=== PATIENT | female | born 1945 | race Caucasian/White ===

== ENCOUNTER → 2016-03-24 | Outpatient (CLI) | payer MEDICARE, OTHER ==
--- NOTE | 2016-03-24 17:00 | TR ---
Date Performed: 03/24/2016 Time Performed: 12:15:31 DOCTOR: Michelle Jesus DRUG LIST: CLINICAL HISTORY: REASON FOR TEST: REASON FOR ENDING: OBSERVATION: CONCLUSION: ATTEMPTED LICHA PROTOCOL. NO CP. TEST STOPPED PRIOR TO REACHING GOAL HEART RATE SECO NDARY TO SOB AND LEG FATIGUE.Maximum RM=517 Max HR Achieved=73.0% Maximum YV=867/68 Total Exercise T timothy=2:51 COMMENTS:
== END ==
LOC: HCAV 11:54
PROVIDERS: ATTEND Family Medicine
DX: R07.9 Chest pain, unspecified (principal)
CPT/HCPCS: 93017

== ENCOUNTER 2016-10-04 13:02 | Emergency (ER) | payer MEDICARE, OTHER ==
[~2016-10-04] VITALS: Ht 160 cm; Wt 85.0 kg
[~2016-10-04 13:02] MED LIST: AMLO5TAB2 PO; ASPI-147 PO; ATOR1TAB18 PO; CLON0.5T PO; LEVO75TA3 PO; LOSA50TA PO; METO25TA3 PO; NATE120T PO; SERT-132 PO; SITA1TAB2 PO; TRIA37.53 PO
[2016-10-04 13:06] VITALS: BP 129/60; PULSE 71; RESP 14; TEMP 98.4; O2SAT 97
[2016-10-04] MEDS ORDERED: DIAZEPAM 5 MG TAB PO ONE (13:30)
[2016-10-04] MEDS ORDERED: MORPHINE SULFATE 4 MG/ML INJ IV PUSH ONE (13:30)
[2016-10-04] MEDS ORDERED: SODIUM CHLOR 0.9% 1000 ML INJ 1,000 ML IV SCH (13:30)
[2016-10-04] MEDS ORDERED: SODIUM CHLORIDE 0.9% FLUSH 10 ML FLUSH IV FLUSH PRN (13:30)
[2016-10-04] MEDS ORDERED: KETOROLAC TROMETHAMINE 30 MG/ML (IVP) VIAL IV PUSH ONE (13:30)
[2016-10-04] MEDS ORDERED: ONDANSETRON HCL 4 MG/2 ML VIAL IVP ONE (13:30)
--- NOTE | 2016-10-04 13:38 | PD ---
HPI Chief Complaint: Abdominal Pain Time Seen by Provider: 13:25 Travel History International Travel<30 days: No Contact w/Intl Traveler<30days: No Traveled to known affect area: No History of Present Illness HPI Patient is a 71-year-old female who presents to emergency with complaints of abdominal pain. She reports that since yesterday, she has been having right lower quadrant abdominal pain. Reports that she is concerned that she may have appendicitis. Patient denies any fevers or chills, denies any nausea or vomiting. Patient also reports that she has acute on chronic low back pain. Reports that she has sciatica with flareup 2 weeks ago. She did follow-up with her chiropractor on Wednesday and had an adjustments, reports that her back is feeling much better. Reports that she still has sciatic pain. Patient denies any saddle anesthesia, denies any incontinence of urine or stool. Patient with no fevers or chills, patient with no problems with gait ambulation. PFSH Past Medical History High Cholesterol: Yes Diabetes: Yes Hypertension: Yes ?: Not Past Surgical History Hysterectomy: Yes Social History Alcohol Use: No Tobacco Use: No Substance Use: No Allergies-Medications (Allergen,Severity, Reaction): Coded Allergies: Sulfa (Verified Allergy, Severe, Nausea/Vomiting, 09/17/16) Reported Meds & Prescriptions Reported Meds & Active Scripts Active Tramadol (Tramadol HCl) 50 Mg Tab 50 Mg PO Q6H PRN Valium (Diazepam) 5 Mg Tab 5 Mg PO BID PRN Ibuprofen 600 Mg Tab 600 Mg PO Q6H PRN Reported Triamterene-Hydrochlorothiazide 37.5-25 Mg Cap 1 Cap PO DAILY Sertraline (Sertraline HCl) 50 Mg Tab 50 Mg PO DAILY Nateglinide 120 Mg Tab 120 Mg PO TIDAC Metoprolol Tartrate 25 Mg Tab 25 Mg PO BID Losartan (Losartan Potassium) 50 Mg Tab 50 Mg PO DAILY Levothyroxine (Levothyroxine Sodium) 75 Mcg Tab 75 Mcg PO DAILY Januvia (Sitagliptin Phosphate) 100 Mg Tab 100 Mg PO DAILY Ecotrin Low Strength (Aspirin) 81 Mg Tabdr 81 Mg PO DAILY Clonazepam 0.5 Mg Tab 0.5 Mg PO BID PRN Atorvastatin (Atorvastatin Calcium) 80 Mg Tab 80 Mg PO HS Amlodipine (Amlodipine Besylate) 5 Mg Tab 5 Mg PO DAILY Review of Systems General / Constitutional: No: Fever Eyes: No: Visual changes HENT: No: Headaches Cardiovascular: No: Chest Pain or Discomfort Respiratory: No: Shortness of Breath Gastrointestinal: Positive: Abdominal Pain Genitourinary: No: Dysuria Musculoskeletal: Positive: Pain (low back pain with sciatica down her right leg ) Skin: No Rash Neurologic: No: Weakness Psychiatric: No: Depression Endocrine: No: Polydipsia Hematologic/Lymphatic: No: Easy Bruising Physical Exam Narrative GENERAL: mild distress SKIN: Focused skin assessment warm/dry. HEAD: Atraumatic. Normocephalic. EYES: Pupils equal and round. No scleral icterus. No injection or drainage. ENT: No nasal bleeding or discharge. Mucous membranes pink and moist. NECK: Trachea midline. No JVD. CARDIOVASCULAR: Regular rate and rhythm. No murmur appreciated. RESPIRATORY: No accessory muscle use. Clear to auscultation. Breath sounds equal bilaterally. GASTROINTESTINAL: Abdomen soft, nondistended, mildly tender to RLQ with no rebound or guarding MUSCULOSKELETAL: No obvious deformities. No clubbing. No cyanosis. No edema. NEUROLOGICAL: Awake and alert. No obvious cranial nerve deficits. Motor grossly within normal limits. Normal speech. PSYCHIATRIC: Appropriate mood and affect; insight and judgment normal. Data Data Last Documented VS Vital Signs Date Time Temp Pulse Resp B/P Pulse Ox O2 Delivery O2 Flow Rate FiO2 10/04/16 15:16 140/74 99 10/04/16 13:06 98.4 71 14 Room Air Orders Complete Blood Count With Diff (10/04/16 13:30) Comprehensive Metabolic Panel (10/04/16 13:30) Lipase (10/04/16 13:30) Prothrombin Time / Inr (Pt) (10/04/16 13:30) Act Partial Throm Time (Ptt) (10/04/16 13:30) Urinalysis - C+S If Indicated (10/04/16 13:30) Iv Access Insert/Monitor (10/04/16 13:30) Ecg Monitoring (10/04/16 13:30) Oximetry (10/04/16 13:30) Morphine Inj (Morphine Inj) (10/04/16 13:30) Ondansetron Inj (Zofran Inj) (10/04/16 13:30) Sodium Chlor 0.9% 1000 Ml Inj (Ns 1000 M (10/04/16 13:30) Sodium Chloride 0.9% Flush (Ns Flush) (10/04/16 13:30) Ketorolac Inj (Toradol Inj) (10/04/16 13:30) Diazepam (Valium) (10/04/16 13:30) Ct Abd/Pel W Iv Contrast(Rout) (10/04/16 14:07) Iodixanol 320 Inj (Rad Ct) (Visipaque 32 (10/04/16 14:48) Labs Laboratory Tests Test 10/04/16 13:41 White Blood Count 4.8 TH/MM3 Red Blood Count 4.66 MIL/MM3 Hemoglobin 14.2 GM/DL Hematocrit 41.1 % Mean Corpuscular Volume 88.2 FL Mean Corpuscular Hemoglobin 30.4 PG Mean Corpuscular Hemoglobin 34.4 % Concent Red Cell Distribution Width 11.5 % Platelet Count 264 TH/MM3 Mean Platelet Volume 7.8 FL Neutrophils (%) (Auto) 60.6 % Lymphocytes (%) (Auto) 26.7 % Monocytes (%) (Auto) 7.4 % Eosinophils (%) (Auto) 3.6 % Basophils (%) (Auto) 1.7 % Neutrophils # (Auto) 2.8 TH/MM3 Lymphocytes # (Auto) 1.3 TH/MM3 Monocytes # (Auto) 0.4 TH/MM3 Eosinophils # (Auto) 0.2 TH/MM3 Basophils # (Auto) 0.1 TH/MM3 CBC Comment DIFF FINAL Differential Comment Prothrombin Time 10.2 SEC Prothromb Time International 0.9 RATIO Ratio Activated Partial 25.4 SEC Thromboplast Time Urine Collection Type CLEAN CATCH Urine Color STRAW Urine Turbidity SLIGHT Urine pH 6.5 Urine Specific Rice 1.016 Urine Protein NEG mg/dL Urine Glucose (UA) NEG mg/dL Urine Ketones NEG mg/dL Urine Occult Blood NEG Urine Nitrite NEG Urine Bilirubin NEG Urine Leukocyte Esterase NEG Urine WBC 0-2 /hpf Urine Squamous Epithelial 0-5 /hpf Cells Urine Amorphous Sediment MOD Microscopic Urinalysis Comment CULT NOT INDICATED Urine Collection Time 1341 Sodium Level 141 MEQ/L Potassium Level 3.7 MEQ/L Chloride Level 107 MEQ/L Carbon Dioxide Level 27.0 MEQ/L Anion Gap 7 MEQ/L Blood Urea Nitrogen 36 MG/DL Creatinine 1.40 MG/DL Estimat Glomerular Filtration 37 ML/MIN Rate Random Glucose 146 MG/DL Calcium Level 9.3 MG/DL Total Bilirubin 0.6 MG/DL Aspartate Amino Transf 21 U/L (AST/SGOT) Alanine Aminotransferase 36 U/L (ALT/SGPT) Alkaline Phosphatase 93 U/L Total Protein 7.2 GM/DL Albumin 3.5 GM/DL Lipase 180 U/L [facility] Medical Decision Making Medical Screen Exam Complete: Yes Emergency Medical Condition: Yes Interpretation(s) Vital Signs Date Time Temp Pulse Resp B/P Pulse Ox O2 Delivery O2 Flow Rate FiO2 10/04/16 13:06 98.4 71 14 129/60 97 Room Air Differential Diagnosis Differential includes gastritis, gastroenteritis, appendicitis, cystitis, electrolyte abnormality Narrative Course Patient is a 71-year-old female who presents to emergency room with complaints of right lower quadrant abdominal pain. She reports that pain began yesterday and feels like a sharp and stabbing sensation. Patient denies constipation, denies nausea vomiting or diarrhea. Patient reports that she is concern for possible appendicitis. Patient reports history of hysterectomy with bilateral oophorectomy. Patient also complains of low back pain. Reports history of low back pain, reports that for the past 2 weeks she has had increased sciatic pain down her right lower extremity. She has follow-up with chiropractor, reports acute on chronic pain to her low back. 1) abdominal pain: Plan to obtain lab work, will order CT of the abdomen pelvis to evaluate for possible appendicitis. UA ordered to evaluate for possible cystitis. 2) back pain with sciatica: Patient is a diabetic, will hold on steroids. Plan to give muscle relaxers, Toradol, will treat patient's pain with morphine. Vital Signs Date Time Temp Pulse Resp B/P Pulse Ox O2 Delivery O2 Flow Rate FiO2 10/04/16 14:07 97 10/04/16 13:06 98.4 71 14 129/60 97 Room Air Laboratory Tests Test 10/04/16 13:41 White Blood Count 4.8 TH/MM3 (4.0-11.0) Red Blood Count 4.66 MIL/MM3 (4.00-5.30) Hemoglobin 14.2 GM/DL (11.6-15.3) Hematocrit 41.1 % (35.0-46.0) Mean Corpuscular Volume 88.2 FL (80.0-100.0) Mean Corpuscular Hemoglobin 30.4 PG (27.0-34.0) Mean Corpuscular Hemoglobin 34.4 % Concent (32.0-36.0) Red Cell Distribution Width 11.5 % (11.6-17.2) Platelet Count 264 TH/MM3 (150-450) Mean Platelet Volume 7.8 FL (7.0-11.0) Neutrophils (%) (Auto) 60.6 % (16.0-70.0) Lymphocytes (%) (Auto) 26.7 % (9.0-44.0) Monocytes (%) (Auto) 7.4 % (0.0-8.0) Eosinophils (%) (Auto) 3.6 % (0.0-4.0) Basophils (%) (Auto) 1.7 % (0.0-2.0) Neutrophils # (Auto) 2.8 TH/MM3 (1.8-7.7) Lymphocytes # (Auto) 1.3 TH/MM3 (1.0-4.8) Monocytes # (Auto) 0.4 TH/MM3 (0-0.9) Eosinophils # (Auto) 0.2 TH/MM3 (0-0.4) Basophils # (Auto) 0.1 TH/MM3 (0-0.2) CBC Comment DIFF FINAL Differential Comment Prothrombin Time 10.2 SEC (9.8-11.6) Prothromb Time International 0.9 RATIO Ratio Activated Partial 25.4 SEC Thromboplast Time (24.3-30.1) Urine Collection Type CLEAN CATCH Urine Color STRAW (YELLW/STRAW) Urine Turbidity SLIGHT (CLEAR) Urine pH 6.5 (5.0-8.5) Urine Specific Rice 1.016 (1.002-1.035) Urine Protein NEG mg/dL (NEG-TRACE) Urine Glucose (UA) NEG mg/dL (NEG) Urine Ketones NEG mg/dL (NEG) Urine Occult Blood NEG (NEG) Urine Nitrite NEG (NEG) Urine Bilirubin NEG (NEG) Urine Leukocyte Esterase NEG (NEG) Urine WBC 0-2 /hpf (0-5) Urine Squamous Epithelial 0-5 /hpf (0-5) Cells Urine Amorphous Sediment MOD Microscopic Urinalysis Comment CULT NOT INDICATED Urine Collection Time 1341 Sodium Level 141 MEQ/L (136-145) Potassium Level 3.7 MEQ/L (3.5-5.1) Chloride Level 107 MEQ/L (98-107) Carbon Dioxide Level 27.0 MEQ/L (21.0-32.0) Anion Gap 7 MEQ/L (5-15) Blood Urea Nitrogen 36 MG/DL (7-18) Creatinine 1.40 MG/DL (0.50-1.00) Estimat Glomerular Filtration 37 ML/MIN (>89) Rate Random Glucose 146 MG/DL (74-106) Calcium Level 9.3 MG/DL (8.5-10.1) Total Bilirubin 0.6 MG/DL (0.2-1.0) Aspartate Amino Transf 21 U/L (15-37) (AST/SGOT) Alanine Aminotransferase 36 U/L (10-53) (ALT/SGPT) Alkaline Phosphatase 93 U/L (45-117) Total Protein 7.2 GM/DL (6.4-8.2) Albumin 3.5 GM/DL (3.4-5.0) Lipase 180 U/L (73-393) Last Impressions Abdomen/Pelvis CT 10/04/16 1407 Signed Impressions: Service Date/Time: Wednesday, October 04, 2016 14:35 - CONCLUSION: 1. Small myelolipoma left adrenal gland. 2. Mass versus ingested material inside the stomach. 3. Tiny left renal stone. Felicia Barksdale MD Patient reevaluated, patient is feeling much better at this time. Abdomen is soft, nontender, nondistended, no peritoneal signs. Signs and symptoms of when to return to the emergency was reviewed patient in detail. I did give patient a copy of her CT report as she will need to follow-up on all incidental findings Diagnosis Primary Impression: Abdominal pain Qualified Code: R10.31 - Right lower quadrant abdominal pain Additional Impressions: Lumbago with sciatica, right side Myelolipoma of left adrenal gland Mass of stomach Dehydration Referrals: Darlene Andrew MD Patient Instructions: General Instructions, Narcotic given in the ED Additional Instructions: Please provide patient with a copy of her lab work and studies at discharge Please follow up with primary care doctor Return to the emergency room as needed Return to the emergency room if symptoms worsen or progress Please bring a copy of your studies to your doctor's office for follow-up on all incidental findings from today Med/Other Pt SpecificInfo: Prescription(s) given Scripts Tramadol 50 Mg Tab50 Mg PO Q6H PRN (PAIN) #10 TAB Ref 0 Prov:Adriana Mortensen DO 10/04/16 Diazepam (Valium)5 Mg Tab5 Mg PO BID PRN (MUSCLE SPASM) #12 TAB Ref 0 Prov:Adriana Mortensen DO 10/04/16 Ibuprofen 600 Mg [id number] Mg PO Q6H PRN (Pain/Inflammation) #40 TAB Ref 0 Prov:Adriana Mortensen DO 10/04/16 Disposition: 01 DISCHARGE HOME Condition: Stable Adriana Mortensen DO Oct 04, 2016 13:38
[2016-10-04 14:03] LABS: AUTOMATED NEUTROPHIL # 2.8 TH/MM3 (1.8-7.7); BASOPHIL # 0.1 TH/MM3 (0-0.2); BASOPHIL % 1.7 % (0.0-2.0); EOSINOPHIL # 0.2 TH/MM3 (0-0.4); EOSINOPHIL % 3.6 % (0.0-4.0); HEMATOCRIT 41.1 % (35.0-46.0); HEMO FLAGS DIFF FINAL; LYMPH % 26.7 % (9.0-44.0); LYMPHOCYTE # 1.3 TH/MM3 (1.0-4.8); MEAN CELL VOLUME 88.2 FL (80.0-100.0); MEAN CORPUSCULAR HEMOGLOBIN 30.4 PG (27.0-34.0); MEAN CORPUSCULAR HGB CONC 34.4 % (32.0-36.0); MONO % 7.4 % (0.0-8.0); NEUT % 60.6 % (16.0-70.0); PLATELET COUNT 264 TH/MM3 (150-450); RED BLOOD COUNT 4.66 MIL/MM3 (4.00-5.30); RED CELL DISTRIBUTION WIDTH 11.5 % (11.6-17.2); WHITE BLOOD COUNT 4.8 TH/MM3 (4.0-11.0)
[2016-10-04 14:07] VITALS: O2SAT 97
[2016-10-04 14:18] LABS: CHLORIDE 107 MEQ/L (98-107); POTASSIUM 3.7 MEQ/L (3.5-5.1); SODIUM (NA) 141 MEQ/L (136-145)
[2016-10-04 14:19] LABS: BLOOD, URINE NEG (NEG); GLUCOSE,URINE NEG (NEG); KETONE, URINE NEG (NEG); NITRITE,URINE NEG (NEG); PH, URINE 6.5 (5.0-8.5)
[2016-10-04 14:22] LABS: ANION GAP 7 MEQ/L (5-15); BLOOD UREA NITROGEN 36 MG/DL (7-18)
[2016-10-04 14:24] LABS: APTT (PATIENT) 25.4 SEC (24.3-30.1); INTERNATIONAL NORMALIZED RATIO 0.9 RATIO; PROTHROMBIN TIME - PATIENT 10.2 SEC (9.8-11.6)
[2016-10-04 14:25] LABS: ALT (GPT) 36 U/L (10-53); AST (GOT) 21 U/L (15-37); GLOMERULAR FILTRATION RATE 37 ML/MIN (>89)
[2016-10-04 14:27] LABS: TOTAL BILIRUBIN ADULT 0.6 MG/DL (0.2-1.0)
[2016-10-04 14:28] LABS: ALKALINE PHOSPHATASE 93 U/L (45-117)
[2016-10-04 14:29] LABS: METHOD OF COLLECTION CLEAN CATCH; URINE COLOR STRAW (YELLW/STRAW)
[2016-10-04 14:31] LABS: COMMENT (UR) CULT NOT INDICATED; COMMENT2 (UR) MUCOUS PRESENT; CULTURE IF INDICATED CULT NOT INDICATED; SQUAMOUS EPITHELIAL CELL URINE 0-5 /hpf (0-5); WBC, URINE 0-2 /hpf (0-5)
[2016-10-04] MEDS ORDERED: IODIXANOL 320 MG/ML 10 ML VIAL (for Rad CT) IV ONE (14:48)
--- NOTE | 2016-10-04 15:00 | RADRPT ---
EXAM DATE/TIME: 10/04/2016 14:35 [facility] COMPARISON: No previous studies available for comparison. INDICATIONS : Right lower quadrant pain. IV CONTRAST: 50 cc Visipaque (iodixanol) IV ORAL CONTRAST: No oral contrast ingested. RADIATION DOSE: 20.41 CTDIvol (mGy) MEDICAL HISTORY : Hypertension. Diabetes. SURGICAL HISTORY : Hysterectomy. ENCOUNTER: Initial ACUITY: 2 days PAIN SCALE: 4/10 LOCATION: Right lower quadrant TECHNIQUE: Volumetric scanning of the abdomen and pelvis was performed. Using automated exposure control and ad justment of the mA and/or kV according to patient size, radiation dose was kept as low as reasonably achievable to obtain optimal diagnostic quality images. DICOM format image data is available electro nically for review and comparison. FINDINGS: CT Abdomen: The liver, spleen, pancreas, right kidney, right adrenal are unremarkable. There is a tin y 3-4 mm stone in the left kidney with slight scarring in left kidney as well. There is no ureteral s tone and there is no hydronephrosis on either side. There is a fat-containing mass in the left adrena l gland measures 1.4 cm in size characteristic of myelolipoma. There is no evidence for any apprecia ble pathological adenopathy, free fluid, or bowel obstruction. Chronic vascular calcifications are pr esent involving the aorta, iliac arteries without any significant stenosis or aneurysmal dilatations for technique. There is soft tissue density in the posterior portion of the stomach measures 3.3 cm i n size possibly ingested material versus mass. CT pelvis: There is no evidence for mass, abscess formation, or any significant adenopathy within the pelvis. The appendix appears intact without definite signs of appendicitis. CONCLUSION: 1. Small myelolipoma left adrenal gland. 2. Mass versus ingested material inside the stomach. 3. Tiny left renal stone. Felicia Barksdale MD on October 04, 2016 at 14:54 Board Certified Radiologist. This report was verified electronically.
[2016-10-04] MEDS ORDERED: DIAZ5 PO (15:10)
[2016-10-04] MEDS ORDERED: IBUP-232 PO (15:10)
[2016-10-04] MEDS ORDERED: TRAM50TA PO (15:10)
[2016-10-04 15:16] VITALS: BP 140/74; O2SAT 99
[2016-10-04 16:02] VITALS: BP 147/74
== END 2016-10-04 16:07 | disposition home or self-care (01) ==
LOC: PHED 13:02
DX: R10.31 Right lower quadrant pain (principal); M54.41 Lumbago with sciatica, right side; D17.79 Benign lipomatous neoplasm of other sites; R19.09 Other intra-abdominal and pelvic swelling, mass and lump; E86.0 Dehydration; E11.9 Type 2 diabetes mellitus without complications; I10 Essential (primary) hypertension; E78.00 Pure hypercholesterolemia, unspecified; Z79.84 Long term (current) use of oral hypoglycemic drugs
CPT/HCPCS: 74177; 80053; 81001; 83690; 85025; 85610; 85730; 96361; 96374; 96375; 99285; J1885; J2270; J2405; J7030; Q9967

== ENCOUNTER 2016-10-25 16:23 | Inpatient (IN) | payer MEDICARE, OTHER ==
[2016-10-25] VITALS (8 sets, daily range): BP systolic 109–143; BP diastolic 56–67; PULSE 56–106; RESP 16–24; TEMP 98.2–98.9; O2SAT 97–100
[~2016-10-25] VITALS: Ht 160 cm; Wt 89.3 kg
[~2016-10-25 16:23] MED LIST changes: +DIAZ5 PO; +IBUP-232 PO; +TRAM50TA PO
[2016-10-25 17:06] LABS: MEAN CORPUSCULAR HGB CONC 36.4 % (32.0-36.0)
[2016-10-25] MEDS ORDERED: SODIUM CHLORIDE 0.9% FLUSH 10 ML FLUSH IVF PRN (17:15)
--- NOTE | 2016-10-25 17:17 | PD ---
HPI Chief Complaint: Respiratory Symptoms Time Seen by Provider: 16:46 Travel History International Travel<30 days: No Contact w/Intl Traveler<30days: No Traveled to known affect area: No History of Present Illness HPI 71-year-old woman who presents to the emergency department complaining of shortness of breath with exertion over the past 2 days or so. Some dull pain in the left shoulder and left shoulder blade as well. She has had trouble for the past several months or so. She had sciatica symptoms. She has some pain in her lower abdomen that was bothering her that they think was probably the sciatica. She had a CT scan done at [place] on October 04 that showed concern for stomach mass versus ingested food. She was due to have a colonoscopy and endoscopy in the next day or 2. She states that she's been feeling more sick, and then started to develop this new shortness of breath when she has not had before so she came to the emergency department. She's never had a DVT or PE in the past. She has no heart disease. 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 She does take aspirin but stopped that 2-3 days ago for upcoming endoscopy. History Past Medical History Narrative Medical Diabetes Hypertension hyperlipidemia Hypothyroidism Social History Alcohol Use: No Tobacco Use: No Allergies-Medications (Allergen,Severity, Reaction): Coded Allergies: Sulfa (Verified Allergy, Severe, Nausea/Vomiting, 10/25/16) Reported Meds & Prescriptions Reported Meds & Active Scripts Active Tramadol (Tramadol HCl) 50 Mg Tab 50 Mg PO Q6H PRN Reported Triamterene-Hydrochlorothiazide 37.5-25 Mg Cap 1 Cap PO DAILY Sertraline (Sertraline HCl) 50 Mg Tab 50 Mg PO DAILY Nateglinide 120 Mg Tab 120 Mg PO TIDAC Metoprolol Tartrate 25 Mg Tab 25 Mg PO BID Losartan (Losartan Potassium) 50 Mg Tab 50 Mg PO DAILY Levothyroxine (Levothyroxine Sodium) 75 Mcg Tab 75 Mcg PO DAILY Januvia (Sitagliptin Phosphate) 100 Mg Tab 100 Mg PO DAILY Ecotrin Low Strength (Aspirin) 81 Mg Tabdr 81 Mg PO DAILY Clonazepam 0.5 Mg Tab 0.5 Mg PO BID PRN Atorvastatin (Atorvastatin Calcium) 80 Mg Tab 80 Mg PO HS Amlodipine (Amlodipine Besylate) 5 Mg Tab 5 Mg PO DAILY Review of Systems Except as stated in HPI: all other systems reviewed are Neg Physical Exam Narrative GENERAL: Well-appearing 71-year-old woman, no acute distress. SKIN: Focused skin assessment warm/dry. HEAD: Atraumatic. Normocephalic. EYES: Pupils equal and round. No scleral icterus. No injection or drainage. ENT: No nasal bleeding or discharge. Mucous membranes pink and moist. NECK: Trachea midline. No JVD. CARDIOVASCULAR: Regular rate and rhythm. No murmur appreciated. RESPIRATORY: No accessory muscle use. Clear to auscultation. Breath sounds equal bilaterally. GASTROINTESTINAL: Abdomen soft, non-tender, nondistended. Hepatic and splenic margins not palpable. MUSCULOSKELETAL: No obvious deformities. No edema. No evidence of DVT. NEUROLOGICAL: Awake and alert. No obvious cranial nerve deficits. Motor grossly within normal limits. Normal speech. Data Data Last Documented VS Vital Signs Date Time Temp Pulse Resp B/P Pulse Ox O2 Delivery O2 Flow Rate FiO2 10/25/16 18:31 56 20 109/56 10/25/16 17:25 Nasal Cannula 2 10/25/16 17:25 98 10/25/16 16:28 98.7 Orders Complete Blood Count With Diff (10/25/16 17:02) Comprehensive Metabolic Panel (10/25/16 17:02) B-Type Natriuretic Peptide (10/25/16 17:02) D-Dimer (10/25/16 17:02) Troponin I (10/25/16 17:02) Iv Access Insert/Monitor (10/25/16 17:02) Electrocardiogram (10/25/16 17:02) Ecg Monitoring (10/25/16 17:02) Oximetry (10/25/16 17:02) Oxygen Administration (10/25/16 17:02) Chest, Single Ap (10/25/16 17:02) Sodium Chloride 0.9% Flush (Ns Flush) (10/25/16 17:15) Sodium Chlor 0.9% 1000 Ml Inj (Ns 1000 M (10/25/16 17:30) Diet Heart Healthy (10/25/16 Dinner) Diet 1800 Ada Cons Carb (10/25/16 Dinner) Vital Signs (Adult) OSEAS.Q4H (10/25/16 18:16) Blood Glucose Goal (Criteria) (10/25/16 18:16) Hypoglycemia 70 Mg/Dl Or < (10/25/16 18:16) Notify Dr: Other (10/25/16 18:16) Dextrose 50% In [place] (Vial) Inj (D50w (Vi (10/25/16 18:30) Glucagon Inj (Glucagon Inj) (10/25/16 18:30) Insulin Aspart Supplemtl Scale (Novolog (10/25/16 21:00) Ventilation & Perfusion Scan (10/25/16 ) Vital Signs (Adult) OSEAS.Q4H (10/25/16 18:27) Enoxaparin Inj (Lovenox Inj) (10/25/16 18:45) Admit Order (Ed Use Only) (10/25/16 ) Labs Laboratory Tests Test 10/25/16 17:05 White Blood Count 14.8 TH/MM3 Red Blood Count 4.73 MIL/MM3 Hemoglobin 15.0 GM/DL Hematocrit 41.1 % Mean Corpuscular Volume 87.0 FL Mean Corpuscular Hemoglobin 31.7 PG Mean Corpuscular Hemoglobin 36.4 % Concent Red Cell Distribution Width 12.7 % Platelet Count 242 TH/MM3 Mean Platelet Volume 8.9 FL Neutrophils (%) (Auto) 82.3 % Lymphocytes (%) (Auto) 10.0 % Monocytes (%) (Auto) 6.5 % Eosinophils (%) (Auto) 0.5 % Basophils (%) (Auto) 0.7 % Neutrophils # (Auto) 12.2 TH/MM3 Lymphocytes # (Auto) 1.5 TH/MM3 Monocytes # (Auto) 1.0 TH/MM3 Eosinophils # (Auto) 0.1 TH/MM3 Basophils # (Auto) 0.1 TH/MM3 CBC Comment AUTO DIFF Differential Total Cells 100 Counted Neutrophils % (Manual) 87 % Band Neutrophils % 1 % Lymphocytes % 9 % Monocytes % 3 % Neutrophils # (Manual) 13.0 TH/MM3 Differential Comment FINAL DIFF MANUAL Atypical Lymphocytes % D-Dimer Quantitative (PE/DVT) 4.97 MG/L FEU Sodium Level 136 MEQ/L Potassium Level 3.0 MEQ/L Chloride Level 99 MEQ/L Carbon Dioxide Level 27.9 MEQ/L Anion Gap 9 MEQ/L Blood Urea Nitrogen 25 MG/DL Creatinine 1.76 MG/DL Estimat Glomerular Filtration 28 ML/MIN Rate Random Glucose 170 MG/DL Calcium Level 9.7 MG/DL Total Bilirubin 1.0 MG/DL Aspartate Amino Transf 18 U/L (AST/SGOT) Alanine Aminotransferase 29 U/L (ALT/SGPT) Alkaline Phosphatase 86 U/L Troponin I LESS THAN 0.02 NG/ML B-Type Natriuretic Peptide 28 PG/ML Total Protein 7.7 GM/DL Albumin 3.4 GM/DL MDM Medical Decision Making Medical Screen Exam Complete: Yes Emergency Medical Condition: Yes Interpretation(s) My review of EKG: Sinus rhythm at a rate of 94, normal axis, normal intervals, some nonspecific inferolateral ST changes, no definite evidence of acute ischemia. Labs: CBC remarkable for CBC elevated white count CMP remarkable from a been a chronic, GFR 28 Troponin negative BNP 28 d-dimer 4.97 Chest x-ray: No acute disease. Differential Diagnosis Anemia, gastritis, mass, PE, ACS, dehydration, other Narrative Course Medical decision making INITIAL: This is a 71-year-old woman who presents to the emergency Department with shortness of breath and dyspnea on exertion ongoing for the past 2 days or so. She's had 6 months or so not really feeling well, she had some double vision that resolved and was attributed to diabetes, she also had some sciatica symptoms. She has this questionable mass in her stomach for which she was given have endoscopy 4. She is a little tachycardic and a little bit hypoxic. PE definitely on the differential. We'll check d-dimer, troponin, EKG, chest x- ray, reassess. FINAL: 71 year-old woman, hypoxia tachycardic with elevated d-dimer, concerning for PE. Renal insufficiency precludes CT pulmonary angiogram. We'll plan empiric Lovenox, VQ scan, repeat assessment. Diagnosis Primary Impression: SOB (shortness of breath) Admitting Information Admitting Physician Requests: Heriberto Mo MD Oct 25, 2016 17:17
[2016-10-25] MEDS ORDERED: SODIUM CHLOR 0.9% 1000 ML INJ 1,000 ML IV ONE (17:30)
--- NOTE | 2016-10-25 17:32 | RADRPT ---
EXAM DATE/TIME: 10/25/2016 17:07 [facility] COMPARISON: No previous studies available for comparison. INDICATIONS : Shortness of breath with left shoulder pain. MEDICAL HISTORY : Hypertension. Diabetes mellitus type II. SURGICAL HISTORY : Hysterectomy. ENCOUNTER: Initial ACUITY: 1 day PAIN SCORE: 6/10 LOCATION: Left chest FINDINGS: A single view of the chest demonstrates the lungs to be symmetrically aerated without evidence of mas s, infiltrate or effusion. The cardiomediastinal contours are unremarkable. Osseous structures are intact. CONCLUSION: No acute disease. Sarabjit Heaton MD on October 25, 2016 at 17:31 Board Certified Radiologist. This report was verified electronically.
[2016-10-25 17:33] LABS: AUTOMATED NEUTROPHIL # 12.2 TH/MM3 (1.8-7.7); BASOPHIL # 0.1 TH/MM3 (0-0.2); BASOPHIL % 0.7 % (0.0-2.0); EOSINOPHIL # 0.1 TH/MM3 (0-0.4); EOSINOPHIL % 0.5 % (0.0-4.0); HEMATOCRIT 41.1 % (35.0-46.0); LYMPHOCYTE # 1.5 TH/MM3 (1.0-4.8); MEAN CORPUSCULAR HEMOGLOBIN 31.7 PG (27.0-34.0); MONO % 6.5 % (0.0-8.0); NEUT % 82.3 % (16.0-70.0); PLATELET COUNT 242 TH/MM3 (150-450); RED BLOOD COUNT 4.73 MIL/MM3 (4.00-5.30); RED CELL DISTRIBUTION WIDTH 12.7 % (11.6-17.2); WHITE BLOOD COUNT 14.8 TH/MM3 (4.0-11.0)
[2016-10-25 17:34] LABS: HEMO FLAGS AUTO DIFF
[2016-10-25 17:55] LABS: ALT (GPT) 29 U/L (10-53); ANION GAP 9 MEQ/L (5-15); AST (GOT) 18 U/L (15-37); BICARBONATE 27.9 MEQ/L (21.0-32.0); BLOOD UREA NITROGEN 25 MG/DL (7-18); CHLORIDE 99 MEQ/L (98-107); GLOMERULAR FILTRATION RATE 28 ML/MIN (>89); SODIUM (NA) 136 MEQ/L (136-145)
[2016-10-25 17:59] LABS: ALKALINE PHOSPHATASE 86 U/L (45-117)
[2016-10-25 18:06] LABS: BANDS 1 % (0-6); POLYS (SEG NEUTROPHILS) 87 % (16-70); WBC DIFF SAMPLE 100
[2016-10-25 18:07] LABS: SCAN/DIFF FINAL DIFF MANUAL
[2016-10-25] MEDS ORDERED: DEXTROSE 50% IN WATER 50 ML VIAL(D50) IV PRN (18:30)
[2016-10-25] MEDS ORDERED: GLUCAGON 1 MG/ML VIAL OTHER PRN (18:30)
[2016-10-25] MEDS ORDERED: ENOXAPARIN SODIUM 80 MG/0.8 ML SYRINGE SQ ONE (18:45)
[2016-10-25] MEDS ORDERED: LACTULOSE SYRUP 20 GM/30 ML CUP PO PRN (19:00)
[2016-10-25] MEDS ORDERED: ACETAMINOPHEN/HYDROcodone 325 MG/5 MG TAB PO PRN (19:00)
[2016-10-25] MEDS ORDERED: clonazePAM 0.5 MG TAB PO PRN (19:00)
[2016-10-25] MEDS ORDERED: ACETAMINOPHEN 325 MG TAB PO PRN (19:00)
[2016-10-25] MEDS ORDERED: SENNOSIDES 8.6 MG TAB PO PRN (19:00)
[2016-10-25] MEDS ORDERED: BISACODYL 10 MG SUPP RECTAL PRN (19:00)
[2016-10-25] MEDS ORDERED: SODIUM CHLORIDE 0.9% FLUSH 10 ML FLUSH IV FLUSH PRN (19:00)
[2016-10-25] MEDS ORDERED: ONDANSETRON HCL 4 MG/2 ML VIAL IVP PRN (19:00)
[2016-10-25] MEDS ORDERED: MAGNESIUM HYDROXIDE SUSP 30 ML CUP PO PRN (19:00)
[2016-10-25] MEDS ORDERED: POTASSIUM CHLORIDE 20 MEQ CONTROLLED RELEASE TAB PO ONE (20:00)
--- NOTE | 2016-10-25 20:35 | RADRPT ---
EXAM DATE/TIME: 10/25/2016 19:58 [facility] COMPARISON: CHEST SINGLE AP, October 25, 2016, 17:07. INDICATIONS : Shortness of breath with left shoulder pain for two days. DOSE: 8.7 mCi Tc99m MAA IV 1.1 mCi Tc99m DTPA aerosol MEDICAL HISTORY : Hypothyroidism. Hypertension. Diabetes mellitus type 2. SURGICAL HISTORY : Hysterectomy. ENCOUNTER: Initial ACUITY: 2 days PAIN SCALE: 4/10 LOCATION: chest TECHNIQUE: Following five minutes of tidal breathing of DTPA aerosol, planar images of the lungs were performed in eight projections. The patient was then injected with MAA, and eight-view perfusion scan was perf ormed. FINDINGS: Multiple perfusion defects are identified bilaterally involving greater than one segment in each lung . These involve the right middle lobe, posterior right lower lobe, lingula, and anterior left lower l obe. No corresponding ventilation defects. CONCLUSION: Exam is positive for pulmonary embolus. Multiple large mismatched perfusion defects. Findings were di scussed with the patient's nurse. Rommel Ritter MD on October 25, 2016 at 20:27 Board Certified Radiologist. This report was verified electronically.
[2016-10-25] MEDS ORDERED: HEPARIN SODIUM - IV 10,000 UNITS/10 ML VIAL IV ONE (20:45)
[2016-10-25] MEDS: DOCUSATE SODIUM 50 MG/SENNA 8.6 MG TAB PO SCH (21:00)
[2016-10-25] MEDS: INSULIN ASPART SUPPLEMENTAL SCALE SQ SCH (21:00)
--- NOTE | 2016-10-25 21:09 | HHI.HP ---
HPI Service [facility] Primary Care Physician José Jackson MD Admission Diagnosis shortness of breath, possible PE Diagnoses: (1) PE (pulmonary thromboembolism) Diagnosis: Principal (2) Leukocytosis Diagnosis: Principal (3) Hypokalemia Diagnosis: Principal (4) Renal insufficiency Diagnosis: Principal (5) Mass of stomach Diagnosis: Principal (6) DM (diabetes mellitus) Diagnosis: Principal Travel History International Travel<30 Days: No Contact w/Intl Traveler <30 Da: No Traveled to Known Affected Are: No History of Present Illness This is a 71-year-old female with a PMH of HTN, Hyperlipidemia, Hypothyroidism and DM who presented to the ER with complaints of SOB with exertion x2-3 days. Denies fever, chills, cough or chest pain. On arrival, BP 117/64, HR 106, O2 sat 97% on RA, Afebrile. WBC 14.8. Creatinine 1.76, previously 1.40 on . K+ 3.0. Troponin negative. D-dimer 4.97. S/p Lovenox 80mg sq in ER while pending V/Q. CXR with no acute findings. V/Q positive for PE, multiple large mismatched perfusion defects noted. 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 Review of Systems Except as stated in HPI: all other systems reviewed are Neg ROS: 14 point review of systems otherwise negative. Past Family Social History Past Medical History PMH: HTN, Hyperlipidemia, Hypothyroidism and DM Past Surgical History PAST SURGICAL HISTORY: Hysterectomy Allergies: Coded Allergies: Sulfa (Verified Allergy, Severe, Nausea/Vomiting, 10/25/16) Family History PAST FAMILY HISTORY: Reviewed, positive for DM. Social History PAST SOCIAL HISTORY: Negative for alcohol, tobacco or drugs. Physical Exam Vital Signs Vital Signs Date Time Temp Pulse Resp B/P Pulse Ox O2 Delivery O2 Flow Rate FiO2 10/25/16 19:34 86 22 118/56 99 Room Air 10/25/16 18:44 90 20 118/65 10/25/16 18:31 56 20 109/56 10/25/16 17:25 Nasal Cannula 2 10/25/16 17:25 98 10/25/16 16:28 98.7 106 24 117/64 97 Room Air Physical Exam PE: GENERAL: Extremely pleasant elderly white female in no acute distress. at bedside. HEENT: PERRLA, EOMI. No scleral icterus or conjunctival pallor. No lid lag or facial droop. CARDIOVASCULAR: Regular rate and rhythm. No obvious murmurs to auscultation. No chest tenderness to palpation. RESPIRATORY: No obvious rhonchi or wheezing. Clear to auscultation. Breath sounds equal bilaterally. GASTROINTESTINAL: Abdomen soft, non-tender, nondistended. BS normal. MUSCULOSKELETAL: Extremities without clubbing, cyanosis, or edema. No obvious deformities. NEUROLOGICAL: Awake, alert and oriented x4. No focal neurologic deficits. Moving both upper and lower extremities spontaneously. Laboratory Laboratory Tests Test 10/25/16 17:05 White Blood Count 14.8 Red Blood Count 4.73 Hemoglobin 15.0 Hematocrit 41.1 Mean Corpuscular Volume 87.0 Mean Corpuscular Hemoglobin 31.7 Mean Corpuscular Hemoglobin 36.4 Concent Red Cell Distribution Width 12.7 Platelet Count 242 Mean Platelet Volume 8.9 Neutrophils (%) (Auto) 82.3 Lymphocytes (%) (Auto) 10.0 Monocytes (%) (Auto) 6.5 Eosinophils (%) (Auto) 0.5 Basophils (%) (Auto) 0.7 Neutrophils # (Auto) 12.2 Lymphocytes # (Auto) 1.5 Monocytes # (Auto) 1.0 Eosinophils # (Auto) 0.1 Basophils # (Auto) 0.1 CBC Comment AUTO DIFF Differential Total Cells 100 Counted Neutrophils % (Manual) 87 Band Neutrophils % 1 Lymphocytes % 9 Monocytes % 3 Neutrophils # (Manual) 13.0 Differential Comment FINAL DIFF MANUAL Atypical Lymphocytes D-Dimer Quantitative (PE/DVT) 4.97 Sodium Level 136 Potassium Level 3.0 Chloride Level 99 Carbon Dioxide Level 27.9 Anion Gap 9 Blood Urea Nitrogen 25 Creatinine 1.76 Estimat Glomerular Filtration 28 Rate Random Glucose 170 Calcium Level 9.7 Total Bilirubin 1.0 Aspartate Amino Transf 18 (AST/SGOT) Alanine Aminotransferase 29 (ALT/SGPT) Alkaline Phosphatase 86 Troponin I LESS THAN 0.02 B-Type Natriuretic Peptide 28 Total Protein 7.7 Albumin 3.4 Result Diagram: 10/25/16 1705 10/25/16 170 Assessment and Plan Problem List: (1) PE (pulmonary thromboembolism) ICD Code: I26.99 Status: Acute (2) Leukocytosis ICD Code: D72.829 Status: Acute (3) Hypokalemia ICD Code: E87.6 Status: Acute (4) Renal insufficiency ICD Code: N28.9 Status: Acute (5) Mass of stomach ICD Code: K31.9 Status: Acute (6) DM (diabetes mellitus) ICD Code: E11.9 Status: Acute Assessment and Plan A/P: 1. PE: c/o SOB x2-3 days, D-Dimer 4.97, CXR w/ no acute findings, V/Q Scan positive for PE, multiple areas of mismatch, images reviewed by me. Recently sedentary x2-3 months due to multiple illnesses, likely etiology. S/p Lovenox 80mg sq in ER, will continue w/ Heparin gtt in light of renal insufficiency. Discussed anticoagulation w/ patient upon discharge, is on Coumadin and familiar w/ monitoring. DuoNeb prn, Symbicort. 2. Leukocytosis: WBC 14.8, elevated neutrophil count, likely secondary to PE, no infiltrate found on CXR, images reviewed by me. Will monitor, repeat labs in am. 3. Hypokalemia: K+ 3.0, will replace and recheck 4. Renal Insufficiency: Creatinine 1.76, creatinine 1.40 on 10/04/16. IVF for hydration, repeat labs in am. 5. Stomach Mass: CT Abd/Pelvis 10/04/16 w/ possible mass vs ingested food in stomach, upcoming EGD/Colonoscopy scheduled for Wednesday. 6. DM: Sliding scale w/ Accu-Cheks 7. DVT Prophylaxis: On Heparin gtt for acute PE 8. Social work for d/c planning as needed. 9. Case discussed w/ ER physician at length. Physician Certification 2 Midnight Certification Type: Admission for Inpatient Services Order for Inpatient Services The services are ordered in accordance with Medicare regulations or non- Medicare payer requirements, as applicable. In the case of services not specified as inpatient-only, they are appropriately provided as inpatient services in accordance with the 2-midnight benchmark. Estimated LOS (days): 2 days is the estimated time the patient will need to remain in the hospital, assuming treatment plan goals are met and no additional complications. Post-Hospital Plan: Not yet determined Sue Venegas MD Oct 25, 2016 21:09
[2016-10-25] MEDS: SODIUM CHLOR 0.9% 1000 ML INJ 1,000 ML IV SCH (21:54)
[2016-10-25] MEDS: ATORVASTATIN 80 MG TAB PO SCH (22:23)
[2016-10-25] MEDS: SODIUM CHLORIDE 0.9% FLUSH 10 ML FLUSH IV FLUSH SCH (22:23)
[2016-10-25] MEDS: METOPROLOL TARTRATE 25 MG TAB PO SCH (22:23)
[2016-10-25] MEDS: HEPARIN-D5W 25,000 U/250 ML 250 ML IV SCH (22:40)
[2016-10-26] VITALS (26 sets, daily range): BP systolic 110–152; BP diastolic 58–74; PULSE 68–96; RESP 16–18; TEMP 97.7–100; O2SAT 95–98
[2016-10-26 01:56] LABS: BACTERIA, URINE RARE /hpf; BLOOD, URINE NEG (NEG); COMMENT (UR) CULT NOT INDICATED; CULTURE IF INDICATED CULT NOT INDICATED; GLUCOSE,URINE NEG (NEG); KETONE, URINE NEG (NEG); NITRITE,URINE NEG (NEG); PH, URINE 6.5 (5.0-8.5); SQUAMOUS EPITHELIAL CELL URINE 1 /hpf (0-5); URINE COLOR LIGHT-YELLOW (YELLW/STRAW)
[2016-10-26] MEDS ORDERED: HEPARIN SODIUM - IV 10,000 UNITS/10 ML VIAL IV PRN ×2 (02:45)
[2016-10-26] MEDS: ACETAMINOPHEN/HYDROcodone 325 MG/10 MG TAB PO PRN ×2 (03:33→20:54)
[2016-10-26] MEDS: INSULIN ASPART SUPPLEMENTAL SCALE SQ SCH ×4 (06:24→21:00)
[2016-10-26] MEDS: LEVOTHYROXINE SODIUM 75 MCG TAB PO SCH (06:25)
[2016-10-26] MEDS: SODIUM CHLOR 0.9% 1000 ML INJ 1,000 ML IV SCH (06:25)
[2016-10-26 07:03] LABS: AUTOMATED NEUTROPHIL # 4.2 TH/MM3 (1.8-7.7); BASOPHIL # 0.1 TH/MM3 (0-0.2); EOSINOPHIL # 0.2 TH/MM3 (0-0.4); EOSINOPHIL % 2.8 % (0.0-4.0); HEMATOCRIT 34.1 % (35.0-46.0); HEMO FLAGS DIFF FINAL; LYMPH % 24.4 % (9.0-44.0); LYMPHOCYTE # 1.6 TH/MM3 (1.0-4.8); MEAN CORPUSCULAR HEMOGLOBIN 31.3 PG (27.0-34.0); MEAN CORPUSCULAR HGB CONC 35.6 % (32.0-36.0); MONO % 8.1 % (0.0-8.0); NEUT % 63.7 % (16.0-70.0); PLATELET COUNT 176 TH/MM3 (150-450); RED BLOOD COUNT 3.88 MIL/MM3 (4.00-5.30); RED CELL DISTRIBUTION WIDTH 12.9 % (11.6-17.2); WHITE BLOOD COUNT 6.6 TH/MM3 (4.0-11.0)
[2016-10-26 07:20] LABS: ANION GAP 10 MEQ/L (5-15); AST (GOT) 16 U/L (15-37); BICARBONATE 25.3 MEQ/L (21.0-32.0); BLOOD UREA NITROGEN 20 MG/DL (7-18); CHLORIDE 105 MEQ/L (98-107); GLOMERULAR FILTRATION RATE 41 ML/MIN (>89); SODIUM (NA) 140 MEQ/L (136-145)
[2016-10-26 07:21] LABS: ALKALINE PHOSPHATASE 66 U/L (45-117); ALT (GPT) 21 U/L (10-53)
[2016-10-26] MEDS: DOCUSATE SODIUM 50 MG/SENNA 8.6 MG TAB PO SCH ×2 (08:29→20:54)
[2016-10-26] MEDS: SERTRALINE HCL 50 MG TAB PO SCH (08:29)
[2016-10-26] MEDS: amLODIPine BESYLATE 5 MG TAB PO SCH (08:29)
[2016-10-26] MEDS: ASPIRIN EC 81 MG TABEC PO SCH (08:29)
[2016-10-26] MEDS: METOPROLOL TARTRATE 25 MG TAB PO SCH ×2 (08:29→20:54)
[2016-10-26] MEDS: SODIUM CHLORIDE 0.9% FLUSH 10 ML FLUSH IV FLUSH SCH ×2 (08:30→20:54)
--- NOTE | 2016-10-26 08:55 | HHI.PR ---
Subjective Remarks Follow up PE. The patient states that she had some pain that radiated to her left shoulder, but that has resolved. She reports intermittent pain in her right lower leg as well. This has actually been going on for a few weeks. She has been treated by her PCP for probable sciatic nerve inflammation with a course of prednisone. Objective Vitals Vital Signs Date Time Temp Pulse Resp B/P Pulse Ox O2 Delivery O2 Flow Rate FiO2 10/26/16 06:00 76 10/26/16 05:00 76 10/26/16 04:00 77 10/26/16 03:00 98.4 76 16 133/67 97 10/26/16 03:00 77 10/26/16 02:00 75 10/26/16 01:00 78 10/26/16 00:00 73 10/25/16 23:00 98.2 82 16 143/67 98 10/25/16 23:00 86 10/25/16 22:15 83 10/25/16 21:12 98.9 82 21 130/58 100 10/25/16 19:34 86 22 118/56 99 Room Air 10/25/16 18:44 90 20 118/65 10/25/16 18:31 56 20 109/56 10/25/16 17:25 Nasal Cannula 2 10/25/16 17:25 98 10/25/16 16:28 98.7 106 24 117/64 97 Room Air I/O 10/25/16 10/25/16 10/25/16 10/26/16 10/26/16 10/26/16 06:59 14:59 22:59 06:59 14:59 22:59 Intake Total 200 ml 1214 ml Output Total 400 ml Balance 200 ml 814 ml Intake Oral 200 ml 480 ml IV Total 734 ml Output Urine Total 400 ml # Voids 1 # Bowel Movements 0 0 Result Diagram: 10/26/16 0450 10/26/16 0450 Imaging Last Impressions Chest X-Ray 10/25/16 1702 Signed Impressions: Service Date/Time: Tuesday, October 25, 2016 17:07 - CONCLUSION: No acute disease. Sarabjit Heaton MD Lung Scan-V Nuclear Medicine 10/25/16 0000 Signed Impressions: Service Date/Time: Tuesday, October 25, 2016 19:58 - CONCLUSION: Exam is positive for pulmonary embolus. Multiple large mismatched perfusion defects. Findings were discussed with the patient's nurse. Rommel Ritter MD Objective Remarks General: Elderly female in no acute distress. Heart: Regular rate and rhythm. No murmur. Lungs: Clear to auscultation bilaterally. No wheezes, rales, or rhonchi. Breathing is nonlabored. Abdomen: Soft, nontender, nondistended. Extremities: No lower extremity edema. Psych: Alert and oriented. Procedures None Urinary Catheter: No Vascular Central Line Catheter: No A/P Problem List: (1) PE (pulmonary thromboembolism) ICD Code: I26.99 Status: Acute (2) Leukocytosis ICD Code: D72.829 Status: Resolved (3) Hypokalemia ICD Code: E87.6 Status: Acute (4) Renal insufficiency ICD Code: N28.9 Status: Acute (5) Mass of stomach ICD Code: K31.9 Status: Acute (6) DM (diabetes mellitus) ICD Code: E11.9 Status: Chronic Assessment and Plan 1. Pulmonary embolus: Patient is on heparin drip. Plan to start Coumadin today. Patient denies any recent travel. She has been fairly sedentary for the last couple months secondary to leg and back pain. She reports a history of uterine cancer that was diagnosed in 2004 and treated with hysterectomy and radiation therapy. We'll consult hematology for further recommendations. Check bilateral lower extremity ultrasound. 2. Hypokalemia: Supplement potassium. Monitor labs. 3. Diabetes mellitus: Oral hypoglycemic medications on hold secondary to renal insufficiency. Monitor Accu-Cheks and cover with sliding scale insulin. Diabetic diet. 4. Stomach mass: This was seen on CT in September 2016. Patient is scheduled for EGD as an outpatient tomorrow. Her daughter has contacted the medical manager and canceled the appointment. 5. Leukocytosis: Likely stress reaction. Resolved. 6. Acute on chronic kidney disease stage III. Continue IV fluids. Monitor BUN and creatinine. Moustapha Humphrey MD Oct 26, 2016 08:55
[2016-10-26] MEDS ORDERED: POTASSIUM CHLORIDE 10 MEQ CONTROLLED RELEASE TAB PO ONE (09:00)
[2016-10-26 09:45] LABS: APTT (PATIENT) 208.2 SEC (24.3-30.1)
[2016-10-26] MEDS ORDERED: INFLUENZA VIRUS VACCINE (QUADRIVALENT) 0.5 ML SYR IM ONE (10:00)
[2016-10-26] MEDS ORDERED: PNEUMOCOCCAL POLYVALENT INJ 25 MCG/0.5 ML SYR IM ONE (10:00)
[2016-10-26] MEDS: NS + KCL 20 MEQ INJ 1,000 ML IV SCH ×2 (10:15→21:01)
--- NOTE | 2016-10-26 11:18 | RADRPT ---
EXAM DATE/TIME: 10/26/2016 09:19 [facility] COMPARISON: No previous studies available for comparison. INDICATIONS : Pulmonary embolism. MEDICAL HISTORY : Hypothyroidism. Hypercholesterolemia. Renal calculi. Restless leg syndrome. Pulmonary embolism. Hyper lipidemia. Stomach mass. Uterine cancer. UTI. Sciatic nerve. Diabetes. Anticoagulant therapy, Hepari n. SURGICAL HISTORY : Hysterectomy. Spinal cyst removed. Colonoscopy. Radiation therapy. ENCOUNTER: Initial ACUITY: 1 month PAIN SCORE: 2/10 LOCATION: Bilateral leg. TECHNIQUE: Venous ultrasound of the left and right leg was performed from the inguinal ligament to the proximal calf. Real-time, color Doppler and spectral tracing, compression and augmentation techniques were us ed. FINDINGS: RIGHT LEG: There is normal compressibility of the deep venous system from the inguinal region to the proximal ca lf. No echogenic clot is seen in the lumen of the common femoral, femoral, popliteal, and posterior tibial veins. There is a normal response of the venous system to proximal and distal augmentation an d respiration. LEFT LEG: There is normal compressibility of the deep venous system from the inguinal region to the proximal ca lf. No echogenic clot is seen in the lumen of the common femoral, femoral, popliteal, and posterior tibial veins. There is a normal response of the venous system to proximal and distal augmentation an d respiration. CONCLUSION: Negative for deep venous thrombosis. Munir Grigsby MD FACR on October 26, 2016 at 11:16 Board Certified Radiologist. This report was verified electronically.
[2016-10-26 15:28] LABS: APTT (PATIENT) 29.1 SEC (24.3-30.1)
--- NOTE | 2016-10-26 16:21 | EKG ---
Date Performed: 10/25/2016 Time Performed: 16:42:10 PTAGE: 71 years EKG: Sinus rhythm NONSPECIFIC ST & T-WAVE ABNORMALITY BORDERLINE ECG INTERPRETATION BASED ON A DEFAULT AGE OF 40 YEARS NO PREVIOUS TRACING DOCTOR: Khurram Cordova Interpretating Date/Time 10/26/2016 16:19:42
[2016-10-26 16:43] LABS: APTT (PATIENT) 27.7 SEC (24.3-30.1)
[2016-10-26] MEDS ORDERED: INFO FOR PHARMACY/READ COMMENT ONE (17:00)
[2016-10-26 19:35] LABS: PROTHROMBIN TIME - PATIENT 11.2 SEC (9.8-11.6)
[2016-10-26] MEDS: WARFARIN SOD 5 MG TAB PO SCH (20:53)
[2016-10-26] MEDS: ATORVASTATIN 80 MG TAB PO SCH (20:54)
[2016-10-26] MEDS: HEPARIN-D5W 25,000 U/250 ML 250 ML IV SCH (21:01)
[2016-10-27] VITALS (19 sets, daily range): BP systolic 112–162; BP diastolic 56–72; PULSE 84–101; RESP 16–20; TEMP 98.4–99.9; O2SAT 93–96
[2016-10-27 00:22] LABS: APTT (PATIENT) 118.2 SEC (24.3-30.1)
[2016-10-27 02:18] LABS: AUTOMATED NEUTROPHIL # 5.6 TH/MM3 (1.8-7.7); BASOPHIL % 0.5 % (0.0-2.0); EOSINOPHIL # 0.2 TH/MM3 (0-0.4); EOSINOPHIL % 2.2 % (0.0-4.0); HEMATOCRIT 32.4 % (35.0-46.0); HEMO FLAGS DIFF FINAL; LYMPH % 18.5 % (9.0-44.0); LYMPHOCYTE # 1.4 TH/MM3 (1.0-4.8); MEAN CELL VOLUME 89.5 FL (80.0-100.0); MEAN CORPUSCULAR HEMOGLOBIN 31.2 PG (27.0-34.0); MEAN CORPUSCULAR HGB CONC 34.9 % (32.0-36.0); MONO % 6.6 % (0.0-8.0); NEUT % 72.2 % (16.0-70.0); PLATELET COUNT 168 TH/MM3 (150-450); RED BLOOD COUNT 3.62 MIL/MM3 (4.00-5.30); RED CELL DISTRIBUTION WIDTH 12.3 % (11.6-17.2); WHITE BLOOD COUNT 7.7 TH/MM3 (4.0-11.0)
[2016-10-27 02:40] LABS: BICARBONATE 26.4 MEQ/L (21.0-32.0); MAGNESIUM 1.6 MG/DL (1.5-2.5); POTASSIUM 3.5 MEQ/L (3.5-5.1)
[2016-10-27 02:45] LABS: APTT (PATIENT) 116.7 SEC (24.3-30.1)
[2016-10-27 05:55] LABS: APTT (PATIENT) 59.2 SEC (24.3-30.1)
[2016-10-27] MEDS: LEVOTHYROXINE SODIUM 75 MCG TAB PO SCH (06:33)
[2016-10-27] MEDS: INSULIN ASPART SUPPLEMENTAL SCALE SQ SCH ×4 (06:34→21:00)
--- NOTE | 2016-10-27 06:55 | MB ---
cc: MARY ANNE SORIA MD DATE OF CONSULTATION 10/26/2016 REFERRING PHYSICIAN Moustapha Humphrey MD REASON FOR CONSULTATION Pulmonary embolism HISTORY OF PRESENT ILLNESS Ms. Aguirre is a 71 year-old lady with a history of stage III chronic kidney disease, hypertension, hypothyroidism, type 2 diabetes mellitus, uterine cancer in 2005 status post total hysterectomy and radiation therapy. She presented to the emergency room on WednesdayOctober 25 with a two day history of progressively worsening shortness of breath. VQ scan in the emergency room revealed multiple perfusion deficits bilaterally involving the right middle lobe, right lower lobe and left lower lobe that was indicative of a pulmonary embolism. She reports that she has been inactive for approximately two months prior to this hospitalization. She developed change in her vision on August 19, 2016 which was being followed by the monitoring specialist. She reports that the change in her vision did not allow for her to drive a car and she has been spending the majority of her time inside her house. Approximately six weeks ago on October 04, she developed sciatic pain in her hip and back which made her spend a lot of time laying on her couch. She had a CT scan done on October 04 which revealed a mass versus ingested material inside the stomach. She was originally planned to undergo an EGD and a colonoscopy today, however, this was canceled. She reports that she had one colonoscopy done approximately 10 years ago. PAST MEDICAL HISTORY 1. Chronic kidney disease stage III 2. Hypertension 3. Hypothyroidism 4. Type 2 diabetes mellitus 5. Uterine cancer diagnosed in 2004 treated with total hysterectomy by Dr. Joe Harris and radiation therapy therapy under the direction of Dr. Kline PAST SURGICAL HISTORY 1. Hysterectomy 2. Pilonidal cyst removal at age 18. SOCIAL HISTORY She lives in [place]. She has a good family support system including her and children. She quit smoking 49 years ago. She reports rare social alcohol use. Denies drug use. FAMILY HISTORY Her father is . He had a history of blood clots, coronary artery disease and diabetes. Her mother is . She had a history of breast cancer that was diagnosed at the age of 89. REVIEW OF SYSTEMS RESPIRATORY: She reports shortness of breath on admission that has since improved. MUSCULOSKELETAL: She reports right lower leg pain. All other review of systems are negative. PHYSICAL EXAM GENERAL: This is a well-developed, well-nourished lady in no acute distress. EYES: No scleral icterus. Pupils equal, round and reactive. EARS, NOSE, AND THROAT: Oropharynx is clear. Mucous membranes are moist. CARDIOVASCULAR: Regular rate and rhythm with no murmurs. RESPIRATORY: No respiratory distress. Lungs are clear to auscultation bilaterally. GI: Abdomen is soft and nontender, nondistended, bowel sounds are present. MUSCULOSKELETAL: Full range of motion. SKIN: No bruises or rashes. NEUROLOGIC: No focal deficits. PSYCH: Normal mood and affect. HEME: No abnormal bruising. NECK: Supple with no palpable lymphadenopathy. LABORATORY STUDIES On October 26 shows a white blood count of 6.6, hemoglobin of 12.1, platelet count of 176 with a normal differential. Chemistry studies reveal a creatinine of 1.27 with a GFR of 41, her creatinine on admission was 1.76 with an estimated GFR of 28. Her renal function from October 04, creatinine of 1.4 with an estimated GFR 37 and from August 22, her creatinine was 1.3 with an estimated GFR of 41. Troponin less than 2.0 from admission IMAGING VQ scan from October 25, 2016 shows multiple perfusion defects identified bilaterally involving greater than one segment in each lung. These involve the right middle lobe, posterior right lower lobe, lingual and anterior left lobe. No corresponding ventilation defects. Exam is positive for pulmonary embolus, multiple large mismatched perfusion defects. Abdomen and pelvis CT from October 042016 shows that the liver, spleen, pancreas, right kidney, right adrenal are unremarkable. There is a tiny 3-4 mm stone in the left kidney with slight scarring in the left kidney as well. There is no ureteral stone and no hydronephrosis on either side. There is a fat containing mass in the left adrenal gland that measures 1.4 cm in size characteristic of a myolipoma. There is no evidence for appreciable pathologic adenopathy, free fluid or bowel obstruction. Chronic vascular calcifications are present involving the aorta, iliac arteries without any significant stenosis or aneurysmal dilation. There is a soft tissue density in the posterior portion of the stomach that measures 3.3 cm in size which is possibly ingested material versus a mass. Duplex ultrasound of the bilateral lower extremities reveals no evidence for a deep venous thrombosis of the right leg or the left leg. ASSESSMENT AND PLAN 1. Pulmonary embolism: Provoked in the setting of decreased activity from other medical issues. She is currently on unfractionated heparin. She will need a minimum of three months of anticoagulation. Discussed adjunct faculty for medical terminology anticoagulation options with the patient and her family. Discussed that she has chronic kidney disease (CrCl approximately 41 mL/min ) which influences our choice of anticoagulants. Options include warfarin and apixaban. With warfarin she will need to watch her diet, have regular INR checks, and a reversal agent is available. With apixaban she would not need to watch her diet or have regular INR checks, however there is no direct reversal agent available. She states that her is on warfarin, she feels comfortable with this drug and she would like to be on this medication. Will place order to start on warfarin 5 mg PO Qdaily this evening. 2. Gastric mass. Uncertain of etiology. Given acute clot, the patient is at a very high thrombotic risk. This risk declines the further away you get from the acute clot. Would recommend waiting at least four to six weeks prior to EGD . MD REMA Toth/MARLENE /5:04 PM /6:30 AM AZIZA
[2016-10-27] MEDS: NS + KCL 20 MEQ INJ 1,000 ML IV SCH ×2 (08:24→21:30)
[2016-10-27] MEDS: ASPIRIN EC 81 MG TABEC PO SCH (08:54)
[2016-10-27] MEDS: SODIUM CHLORIDE 0.9% FLUSH 10 ML FLUSH IV FLUSH SCH ×2 (08:54→21:00)
[2016-10-27] MEDS: amLODIPine BESYLATE 5 MG TAB PO SCH (08:54)
[2016-10-27] MEDS: DOCUSATE SODIUM 50 MG/SENNA 8.6 MG TAB PO SCH ×2 (08:54→21:29)
[2016-10-27] MEDS: METOPROLOL TARTRATE 25 MG TAB PO SCH ×2 (08:54→21:28)
[2016-10-27] MEDS: SERTRALINE HCL 50 MG TAB PO SCH (08:54)
--- NOTE | 2016-10-27 09:27 | HHI.PR ---
Subjective Remarks Follow up PE. Patient reporting cough, but no chest pain or dyspnea. Her main complaint is pain in the right foot and ankle, which occurs at rest. The area is not tender. Pain medication helped last night. Objective Vitals Vital Signs Date Time Temp Pulse Resp B/P Pulse Ox O2 Delivery O2 Flow Rate FiO2 10/27/16 06:00 94 10/27/16 05:00 92 10/27/16 04:00 92 10/27/16 04:00 99.9 92 16 115/62 95 10/27/16 03:00 93 10/27/16 02:00 90 10/27/16 01:00 88 10/27/16 00:00 86 10/26/16 23:30 100.0 95 16 149/68 95 10/26/16 23:00 96 10/26/16 22:00 92 10/26/16 21:00 96 10/26/16 20:00 99.9 95 16 152/74 96 10/26/16 20:00 86 10/26/16 19:00 90 10/26/16 18:35 84 10/26/16 17:18 85 10/26/16 16:28 75 10/26/16 15:25 77 10/26/16 15:14 98.4 83 18 141/70 96 10/26/16 14:49 77 10/26/16 13:28 68 10/26/16 12:58 73 10/26/16 11:30 97.7 82 17 124/65 96 10/26/16 11:30 73 10/26/16 10:06 75 I/O 10/26/16 10/26/16 10/26/16 10/27/16 10/27/16 10/27/16 07:00 15:00 23:00 07:00 15:00 23:00 Intake Total 1214 ml 840 ml 1361 ml Output Total 400 ml 450 ml 1100 ml Balance 814 ml 390 ml 261 ml Intake Oral 480 ml 840 ml 240 ml IV Total 734 ml 1121 ml Output Urine Total 400 ml 450 ml 1100 ml # Bowel Movements 0 0 Result Diagram: 10/27/16 0152 10/27/16 0152 Imaging Last Impressions Lower Extremity Ultrasound 10/26/16 0000 Signed Impressions: Service Date/Time: Wednesday, October 26, 2016 09:19 - CONCLUSION: Negative for deep venous thrombosis. Munir Grigsby MD FACR Chest X-Ray 10/25/16 1702 Signed Impressions: Service Date/Time: Tuesday, October 25, 2016 17:07 - CONCLUSION: No acute disease. Sarabjit Heaton MD Lung Scan-VQ Nuclear Medicine 10/25/16 0000 Signed Impressions: Service Date/Time: Tuesday, October 25, 2016 19:58 - CONCLUSION: Exam is positive for pulmonary embolus. Multiple large mismatched perfusion defects. Findings were discussed with the patient's nurse. Rommel Ritter MD Objective Remarks General: Elderly female in no acute distress. Sitting up in a chair. Heart: Regular rate and rhythm. No murmur. Lungs: Clear to auscultation bilaterally. No wheezes, rales, or rhonchi. Breathing is nonlabored. Abdomen: Soft, nontender, nondistended. Extremities: No lower extremity edema. No tenderness over right lower leg/ankle/ foot. Psych: Alert and oriented. Procedures None Urinary Catheter: No Vascular Central Line Catheter: No A/P Problem List: (1) PE (pulmonary thromboembolism) ICD Code: I26.99 Status: Acute (2) Leukocytosis ICD Code: D72.829 Status: Resolved (3) Hypokalemia ICD Code: E87.6 Status: Acute (4) Renal insufficiency ICD Code: N28.9 Status: Acute (5) Mass of stomach ICD Code: K31.9 Status: Acute (6) DM (diabetes mellitus) ICD Code: E11.9 Status: Chronic Assessment and Plan 1. Pulmonary embolus: Continue heparin drip, Coumadin. Patient denies any recent travel. She has been fairly sedentary for the last couple months secondary to leg and back pain. She reports a history of uterine cancer that was diagnosed in 2004 and treated with hysterectomy and radiation therapy. Also recently diagnosed with possible gastric mass. Appreciate hematology recommendations. Lower extremity ultrasound is negative for DVT. 2. Hypokalemia: Improved. 3. Diabetes mellitus: Oral hypoglycemic medications on hold secondary to renal insufficiency. Monitor Accu-Cheks and cover with sliding scale insulin. Diabetic diet. 4. Stomach mass: This was seen on CT in September 2016. Patient is scheduled for EGD as an outpatient tomorrow. Her daughter has contacted the senior tableau developer and canceled the appointment. 5. Leukocytosis: Likely stress reaction. Resolved. 6. Acute on chronic kidney disease stage III: Improving. Continue IV fluids. Monitor BUN and creatinine. Discharge Planning Transfer to med/surg floor. Moustapha Humphrey MD Oct 27, 2016 09:27
--- NOTE | 2016-10-27 11:08 | PD.ONC.PN ---
Subjective Subjective Remarks Ms. Aguirre reports that she is feeling better today. Her shortness of breath has greatly improved. She is ambulating. Her right groin pain has resolved, however her right lateral calf pain is still present. Objective Data Date Time Temp Pulse Resp B/P Pulse Ox O2 Delivery O2 Flow Rate FiO2 10/27/16 06:00 94 10/27/16 05:00 92 10/27/16 04:00 92 10/27/16 04:00 99.9 92 16 115/62 95 10/27/16 03:00 93 10/27/16 02:00 90 10/27/16 01:00 88 10/27/16 00:00 86 10/26/16 23:30 100.0 95 16 149/68 95 10/26/16 23:00 96 10/26/16 22:00 92 10/26/16 21:00 96 10/26/16 20:00 99.9 95 16 152/74 96 10/26/16 20:00 86 10/26/16 19:00 90 10/26/16 18:35 84 10/26/16 17:18 85 10/26/16 16:28 75 10/26/16 15:25 77 10/26/16 15:14 98.4 83 18 141/70 96 10/26/16 14:49 77 10/26/16 13:28 68 10/26/16 12:58 73 10/26/16 11:30 97.7 82 17 124/65 96 10/26/16 11:30 73 10/27/16 10/27/16 10/27/16 07:00 15:00 23:00 Intake Total 1361 ml Output Total 1100 ml Balance 261 ml Result Diagram: 10/27/16 0152 10/27/16 015 Laboratory Results Laboratory Tests Test 10/26/16 10/26/16 10/26/16 10/26/16 14:05 16:09 19:15 23:57 Activated Partial 29.1 SEC 27.7 SEC 118.2 SEC Thromboplast Time Prothrombin Time 11.2 SEC Prothromb Time International 1.0 RATIO Ratio Test 10/27/16 10/27/16 01:52 05:07 White Blood Count 7.7 TH/MM3 Red Blood Count 3.62 MIL/MM3 Hemoglobin 11.3 GM/DL Hematocrit 32.4 % Mean Corpuscular Volume 89.5 FL Mean Corpuscular Hemoglobin 31.2 PG Mean Corpuscular Hemoglobin 34.9 % Concent Red Cell Distribution Width 12.3 % Platelet Count 168 TH/MM3 Mean Platelet Volume 8.0 FL Neutrophils (%) (Auto) 72.2 % Lymphocytes (%) (Auto) 18.5 % Monocytes (%) (Auto) 6.6 % Eosinophils (%) (Auto) 2.2 % Basophils (%) (Auto) 0.5 % Neutrophils # (Auto) 5.6 TH/MM3 Lymphocytes # (Auto) 1.4 TH/MM3 Monocytes # (Auto) 0.5 TH/MM3 Eosinophils # (Auto) 0.2 TH/MM3 Basophils # (Auto) 0.0 TH/MM3 CBC Comment DIFF FINAL Differential Comment Activated Partial 116.7 SEC 59.2 SEC Thromboplast Time Sodium Level 141 MEQ/L Potassium Level 3.5 MEQ/L Chloride Level 108 MEQ/L Carbon Dioxide Level 26.4 MEQ/L Anion Gap 7 MEQ/L Blood Urea Nitrogen 17 MG/DL Creatinine 1.04 MG/DL Estimat Glomerular Filtration 52 ML/MIN Rate Random Glucose 133 MG/DL Calcium Level 8.1 MG/DL Magnesium Level 1.6 MG/DL Administered Medications Medications (Trade) Dose Ordered Sig/Paola Route PRN Reason Start Time Stop Time Status Last Admin Dose Admin Sodium Chloride (NS Flush) 2 ml BID IV FLUSH 10/25/16 21:00 10/25/16 22:23 Acetaminophen/ Hydrocodone Bitart ([place] 5-325 Mg) 1 tab Q4H PRN PO PAIN SCALE 3 TO 5 10/25/16 19:00 10/26/16 12:39 Acetaminophen/ Hydrocodone Bitart ([place] 10-325 Mg) 1 tab Q4H PRN PO PAIN SCALE 6 TO 10 10/25/16 19:00 10/26/16 20:54 Senna/Docusate Sodium (Nurys-Colace) 1 tab BID PO 10/25/16 21:00 10/27/16 08:54 Amlodipine Besylate (Norvasc) 5 mg DAILY PO 10/26/16 09:00 10/27/16 08:54 Aspirin (Ecotrin Ec) 81 mg DAILY PO 10/26/16 09:00 10/27/16 08:54 Atorvastatin Calcium (Lipitor) 80 mg HS PO 10/25/16 21:00 10/26/16 20:54 Levothyroxine Sodium (Synthroid) 75 mcg DAILY@06 PO 10/26/16 06:00 10/27/16 06:33 Metoprolol Tartrate (Lopressor) 25 mg BID PO 10/25/16 21:00 10/27/16 08:54 Sertraline HCl (Zoloft) 50 mg DAILY PO 10/26/16 09:00 10/27/16 08:54 Heparin Sodium (Porcine) 2500 units 2,500 units UNSCH PRN IV APTT 25 TO 39 10/26/16 02:45 10/26/16 16:55 Heparin Sodium/ Dextrose 250 ml @ 0 mls/hr TITRATE IV 10/25/16 20:45 10/26/16 21:01 Potassium Chloride/Sodium Chloride (NS + KCl 20 Meq Inj) 1,000 ml @ 83 mls/hr Q12H3M IV 10/26/16 09:00 10/27/16 08:24 Warfarin Sodium (Coumadin) 5 mg DAILY@1600 PO 10/26/16 20:00 10/26/16 20:53 Objective Remarks GENERAL: Well-nourished, well-developed patient. SKIN: Warm and dry. HEAD: Normocephalic. EYES: No scleral icterus. No injection or drainage. NECK: Supple, with no palpable lymphadenopathy. CARDIOVASCULAR: Regular rate and rhythm without murmurs. RESPIRATORY: Breath sounds equal bilaterally. No accessory muscle use. GASTROINTESTINAL: Abdomen soft, non-tender, nondistended. EXTREMITIES: No cyanosis, or edema. NEUROLOGICAL: No obvious focal deficit. Awake, alert, and oriented x3. PSYCHIATRIC: Appropriate mood and affect; insight and judgment normal. Assessment/Plan Assessment 1. Pulmonary embolism: Provoked in the setting of inactivity due to vision changes and right leg pain. She will need three months of anticoagulation. She would like to take warfarin. Warfarin was started on 10/26 with starting INR of 1.0. Will order INR for tomorrow morning. Discussed with pateint and daughter that warfarin takes approximately 4-7 days to become therapeutic (INR between 2.0 to 3.0). If she continues to do well tomorrow discussed transitioning from heparin to lovenox bridge for consideration of discharge. As creatinine clearance is 41 mg/mL there are no dose adjustments recommended per package insert. -Lovenox dose at 1 mg/kg (85 mg) BID with close monitoring for bleeding. When transitioning stop heparin and start lovenox within 2 hours. -Will arrange for close follow up of INR in clinic. Once therapeutic INR obtained will discontinue lovenox therapy. 2. Gastric mass: discovered incidentally on CT from 10/04. Uncertain of etiology report indicates undigested food vs mass. Review images with radiologist at tumor board. Suspicious for ingested food. Will order UGI for further evaluation. This can be done tomorrow. Made her NPO and radiology department will order bowel prep per their protocol. 3. CKD, moderate renal impairment 4. History of uterine cancer: in 2005 s/p surgery and radiation therapy. This is likely not contributing to current clinical picture. Dotty Torre MD Oct 27, 2016 11:08
[2016-10-27] MEDS ORDERED: MAGNESIUM CITRATE SOLN 300 ML BTL PO ONE ×2 (17:00→22:30)
[2016-10-27] MEDS: WARFARIN SOD 5 MG TAB PO SCH (18:37)
[2016-10-27] MEDS: ATORVASTATIN 80 MG TAB PO SCH (21:28)
[2016-10-27] MEDS ORDERED: BISACODYL EC 5 MG TABEC PO ONE (23:00)
[2016-10-28] VITALS (7 sets, daily range): BP systolic 136–158; BP diastolic 62–72; PULSE 85–98; RESP 18–20; TEMP 98–98.9; O2SAT 92–95
[2016-10-28] MEDS: LEVOTHYROXINE SODIUM 75 MCG TAB PO SCH (05:06)
[2016-10-28] MEDS: INSULIN ASPART SUPPLEMENTAL SCALE SQ SCH ×4 (06:02→21:33)
[2016-10-28 07:45] LABS: APTT (PATIENT) 52.6 SEC (24.3-30.1); AUTOMATED NEUTROPHIL # 3.6 TH/MM3 (1.8-7.7); BASOPHIL % 0.7 % (0.0-2.0); EOSINOPHIL # 0.2 TH/MM3 (0-0.4); EOSINOPHIL % 3.3 % (0.0-4.0); HEMATOCRIT 31.1 % (35.0-46.0); INTERNATIONAL NORMALIZED RATIO 1.1 RATIO; LYMPH % 21.6 % (9.0-44.0); LYMPHOCYTE # 1.1 TH/MM3 (1.0-4.8); MEAN CELL VOLUME 87.4 FL (80.0-100.0); MEAN CORPUSCULAR HEMOGLOBIN 31.4 PG (27.0-34.0); MONO % 5.8 % (0.0-8.0); NEUT % 68.6 % (16.0-70.0); PLATELET COUNT 162 TH/MM3 (150-450); PROTHROMBIN TIME - PATIENT 11.8 SEC (9.8-11.6); RED BLOOD COUNT 3.56 MIL/MM3 (4.00-5.30); RED CELL DISTRIBUTION WIDTH 12.5 % (11.6-17.2); WHITE BLOOD COUNT 5.2 TH/MM3 (4.0-11.0)
[2016-10-28 07:53] LABS: HEMO FLAGS AUTO DIFF
[2016-10-28 08:03] LABS: BICARBONATE 27.2 MEQ/L (21.0-32.0); MAGNESIUM 2.1 MG/DL (1.5-2.5); POTASSIUM 3.3 MEQ/L (3.5-5.1)
[2016-10-28] MEDS: DOCUSATE SODIUM 50 MG/SENNA 8.6 MG TAB PO SCH ×2 (09:00→21:00)
[2016-10-28] MEDS: SODIUM CHLORIDE 0.9% FLUSH 10 ML FLUSH IV FLUSH SCH ×2 (09:00→21:00)
[2016-10-28 09:41] LABS: PLATELET ESTIMATE SMEAR NORMAL (NORMAL); PLATELET MORPHOLOGY NORMAL (NORMAL); SCAN/DIFF AUTO DIFF CONFIRMED
[2016-10-28] MEDS: ASPIRIN EC 81 MG TABEC PO SCH (09:45)
[2016-10-28] MEDS: amLODIPine BESYLATE 5 MG TAB PO SCH (09:46)
[2016-10-28] MEDS: SERTRALINE HCL 50 MG TAB PO SCH (09:46)
[2016-10-28] MEDS: METOPROLOL TARTRATE 25 MG TAB PO SCH ×2 (09:46→21:27)
--- NOTE | 2016-10-28 11:14 | PD.ONC.PN ---
Subjective Subjective Remarks Ms. Aguirre is tired this morning and is having expected diarrhea from bowel prep. Objective Data Date Time Temp Pulse Resp B/P Pulse Ox O2 Delivery O2 Flow Rate FiO2 10/28/16 08:00 98.0 98 20 154/70 93 10/28/16 04:00 98.7 96 18 143/63 94 10/28/16 00:00 98.2 89 18 148/68 95 10/27/16 20:15 Room Air 10/27/16 20:00 98.6 101 20 162/72 93 10/27/16 19:55 92 10/27/16 16:00 99.8 88 18 112/56 95 10/27/16 14:00 99.5 92 18 137/61 96 10/27/16 13:02 93 10/27/16 12:00 98.4 85 19 125/67 95 10/27/16 12:00 92 10/27/16 11:16 86 10/28/16 10/28/16 10/28/16 07:00 15:00 23:00 Intake Total 0 ml Balance 0 ml Result Diagram: 10/28/16 0637 10/28/16 0637 Laboratory Results Laboratory Tests Test 10/27/16 10/28/16 11:59 06:37 Activated Partial 54.0 SEC 52.6 SEC Thromboplast Time White Blood Count 5.2 TH/MM3 Red Blood Count 3.56 MIL/MM3 Hemoglobin 11.2 GM/DL Hematocrit 31.1 % Mean Corpuscular Volume 87.4 FL Mean Corpuscular Hemoglobin 31.4 PG Mean Corpuscular Hemoglobin 36.0 % Concent Red Cell Distribution Width 12.5 % Platelet Count 162 TH/MM3 Mean Platelet Volume 8.1 FL Neutrophils (%) (Auto) 68.6 % Lymphocytes (%) (Auto) 21.6 % Monocytes (%) (Auto) 5.8 % Eosinophils (%) (Auto) 3.3 % Basophils (%) (Auto) 0.7 % Neutrophils # (Auto) 3.6 TH/MM3 Lymphocytes # (Auto) 1.1 TH/MM3 Monocytes # (Auto) 0.3 TH/MM3 Eosinophils # (Auto) 0.2 TH/MM3 Basophils # (Auto) 0.0 TH/MM3 CBC Comment AUTO DIFF Differential Comment AUTO DIFF CONFIRMED Platelet Estimate NORMAL Platelet Morphology Comment NORMAL Prothrombin Time 11.8 SEC Prothromb Time International 1.1 RATIO Ratio Sodium Level 143 MEQ/L Potassium Level 3.3 MEQ/L Chloride Level 111 MEQ/L Carbon Dioxide Level 27.2 MEQ/L Anion Gap 5 MEQ/L Blood Urea Nitrogen 16 MG/DL Creatinine 0.83 MG/DL Estimat Glomerular Filtration 68 ML/MIN Rate Random Glucose 141 MG/DL Calcium Level 8.2 MG/DL Magnesium Level 2.1 MG/DL Administered Medications Medications (Trade) Dose Ordered Sig/Paola Route PRN Reason Start Time Stop Time Status Last Admin Dose Admin Sodium Chloride (NS Flush) 2 ml BID IV FLUSH 10/25/16 21:00 10/25/16 22:23 Acetaminophen/ Hydrocodone Bitart ([place] 5-325 Mg) 1 tab Q4H PRN PO PAIN SCALE 3 TO 5 10/25/16 19:00 10/26/16 12:39 Acetaminophen/ Hydrocodone Bitart ([place] 10-325 Mg) 1 tab Q4H PRN PO PAIN SCALE 6 TO 10 10/25/16 19:00 10/26/16 20:54 Senna/Docusate Sodium (Nurys-Colace) 1 tab BID PO 10/25/16 21:00 10/27/16 21:29 Amlodipine Besylate (Norvasc) 5 mg DAILY PO 10/26/16 09:00 10/28/16 09:46 Aspirin (Ecotrin Ec) 81 mg DAILY PO 10/26/16 09:00 10/28/16 09:45 Atorvastatin Calcium (Lipitor) 80 mg HS PO 10/25/16 21:00 10/27/16 21:28 Levothyroxine Sodium (Synthroid) 75 mcg DAILY@06 PO 10/26/16 06:00 10/28/16 05:06 Metoprolol Tartrate (Lopressor) 25 mg BID PO 10/25/16 21:00 10/28/16 09:46 Sertraline HCl (Zoloft) 50 mg DAILY PO 10/26/16 09:00 10/28/16 09:46 Heparin Sodium (Porcine) 2500 units 2,500 units UNSCH PRN IV APTT 25 TO 39 10/26/16 02:45 10/26/16 16:55 Heparin Sodium/ Dextrose 250 ml @ 0 mls/hr TITRATE IV 10/25/16 20:45 10/26/16 21:01 Potassium Chloride/Sodium Chloride (NS + KCl 20 Meq Inj) 1,000 ml @ 83 mls/hr Q12H3M IV 10/26/16 09:00 10/27/16 21:30 Warfarin Sodium (Coumadin) 5 mg DAILY@1600 PO 10/26/16 20:00 10/27/16 18:37 Objective Remarks GENERAL: Well-nourished, well-developed patient. SKIN: Warm and dry. HEAD: Normocephalic. EYES: No scleral icterus. No injection or drainage. NEUROLOGICAL: No obvious focal deficit. Awake, alert, and oriented x3. PSYCHIATRIC: Appropriate mood and affect; insight and judgment normal. Assessment/Plan Assessment 1. Pulmonary embolism: Provoked in the setting of inactivity due to vision changes and right leg pain. She will need three months of anticoagulation. She would like to take warfarin. Warfarin was started on 10/26 with starting INR of 1.0. INR 1.1 today. Coumadin dose yesterday likely affected by bowel prep. Will continue heparin today and will address transition to lovenox tomorrow. -Lovenox dose at 1 mg/kg (85 mg) BID with close monitoring for bleeding. When transitioning stop heparin and start lovenox within 2 hours. -Will arrange for close follow up of INR in clinic. Once therapeutic INR obtained will discontinue lovenox therapy. 2. Gastric mass: discovered incidentally on CT from 10/04. Uncertain of etiology report indicates undigested food vs mass She will have UGI series performed today 3. CKD, moderate renal impairment 4. History of uterine cancer: in 2004 s/p surgery and radiation therapy. This is likely not contributing to current clinical picture. Dotty Torre MD Oct 28, 2016 11:13
--- NOTE | 2016-10-28 12:58 | RADRPT ---
EXAM DATE/TIME: 10/28/2016 12:03 COMPARISON: CT ABDOMEN & PELVIS W CONTRAST, October 04, 2016, 14:35. INDICATIONS : Possible gastric mass identified on previous CT scan. FLUORO TIME: 1.2 minutes IMAGE COUNT: 15 CONTRAST: Thick and thin barium. MEDICAL HISTORY : Hypertension. Diabetes. SURGICAL HISTORY : Hysterectomy. ENCOUNTER: Initial ACUITY: 1 month PAIN SCORE: 0/10 LOCATION: Left upper quadrant abdomen FINDINGS: [employer] film of the abdomen and pelvis is unremarkable. Deglutition is grossly unremarkable as well wit h no evidence of aspiration. The stomach is normal in size and shape. There is a small reducible hiat al hernia with small amount of spontaneous gastroesophageal reflux. The mucosal detail is unremarkabl e with no focal mass. CONCLUSION: 1. The stomach is within normal limits with no mass. The abnormality seen on the recent abdomen CT ap pears to be artifactual secondary to food. 2. Small reducible hiatal hernia with small amount of gastroesophageal reflux. Redd Casas MD on October 28, 2016 at 12:53 Board Certified Radiologist. This report was verified electronically.
--- NOTE | 2016-10-28 13:22 | HHI.PR ---
Subjective Remarks Follow-up PE. Patient denies chest pain, dyspnea, cough. States that she feels "a lot better" since the upper GI study has been completed. Right leg pain has improved as well. Objective Vitals Vital Signs Date Time Temp Pulse Resp B/P Pulse Ox O2 Delivery O2 Flow Rate FiO2 10/28/16 08:00 98.0 98 20 154/70 93 10/28/16 04:00 98.7 96 18 143/63 94 10/28/16 00:00 98.2 89 18 148/68 95 10/27/16 20:15 Room Air 10/27/16 20:00 98.6 101 20 162/72 93 10/27/16 19:55 92 10/27/16 16:00 99.8 88 18 112/56 95 10/27/16 14:00 99.5 92 18 137/61 96 I/O 10/27/16 10/27/16 10/27/16 10/28/16 10/28/16 10/28/16 07:00 15:00 23:00 07:00 15:00 23:00 Intake Total 1361 ml 2568 ml 0 ml Output Total 1100 ml Balance 261 ml 2568 ml 0 ml Intake Oral 240 ml 0 ml 0 ml IV Total 1121 ml 2568 ml Output Urine Total 1100 ml # Voids 3 3 # Bowel Movements 0 3 7 Result Diagram: 10/28/16 0637 10/28/16 0637 Imaging Last Impressions Upper GI Series w/ Air Contrast 10/28/16 0000 Signed Impressions: Service Date/Time: Friday, October 28, 2016 12:03 - CONCLUSION: 1. The stomach is within normal limits with no mass. The abnormality seen on the recent abdomen CT appears to be artifactual secondary to food. 2. Small reducible hiatal hernia with small amount of gastroesophageal reflux. Redd Casas MD Lower Extremity Ultrasound 10/26/16 0000 Signed Impressions: Service Date/Time: Wednesday, October 26, 2016 09:19 - CONCLUSION: Negative for deep venous thrombosis. Munir Grigsby MD FACR Chest X-Ray 10/25/16 1702 Signed Impressions: Service Date/Time: Tuesday, October 25, 2016 17:07 - CONCLUSION: No acute disease. Sarabjit Heaton MD Lung Scan- Nuclear Medicine 10/25/16 0000 Signed Impressions: Service Date/Time: Tuesday, October 25, 2016 19:58 - CONCLUSION: Exam is positive for pulmonary embolus. Multiple large mismatched perfusion defects. Findings were discussed with the patient's nurse. Rommel Ritter MD Objective Remarks General: Elderly female in no acute distress. Heart: Regular rate and rhythm. No murmur. Lungs: Clear to auscultation bilaterally. No wheezes, rales, or rhonchi. Breathing is nonlabored. Abdomen: Soft, nontender, nondistended. Extremities: No lower extremity edema. Psych: Alert and oriented. Procedures None A/P Problem List: (1) PE (pulmonary thromboembolism) ICD Code: I26.99 Status: Acute (2) Leukocytosis ICD Code: D72.829 Status: Resolved (3) Hypokalemia ICD Code: E87.6 Status: Acute (4) Renal insufficiency ICD Code: N28.9 Status: Acute (5) Mass of stomach ICD Code: K31.9 Status: Acute (6) DM (diabetes mellitus) ICD Code: E11.9 Status: Chronic Assessment and Plan 1. Pulmonary embolus: Continue heparin drip, Coumadin. Patient denies any recent travel. She has been fairly sedentary for the last couple months secondary to leg and back pain. She reports a history of uterine cancer that was diagnosed in 2004 and treated with hysterectomy and radiation therapy, although this is unlikely to be contributing to her current diagnosis. Appreciate hematology recommendations. Lower extremity ultrasound is negative for DVT. Per hematology, planning to transition from heparin drip to Lovenox tomorrow in anticipation of discharge home soon. 2. Hypokalemia: Improved. 3. Diabetes mellitus: Oral hypoglycemic medications on hold secondary to renal insufficiency. Monitor Accu-Cheks and cover with sliding scale insulin. Diabetic diet. 4. Leukocytosis: Likely stress reaction. Resolved. 5. Acute on chronic kidney disease stage III: Improving. Continue IV fluids. Monitor BUN and creatinine. 6. Upper GI series completed to evaluate possible gastric mass. No mass was seen. The initial CT finding was likely artifactual secondary to retained food. Discharge Planning Plan for discharge home once transitioned to Lovenox. Moustapha Humphrey MD Oct 28, 2016 13:22
[2016-10-28] MEDS ORDERED: POTASSIUM CHLORIDE 10 MEQ CONTROLLED RELEASE TAB PO ONE (13:30)
[2016-10-28] MEDS: WARFARIN SOD 5 MG TAB PO SCH (17:24)
[2016-10-28] MEDS: ATORVASTATIN 80 MG TAB PO SCH (21:27)
[2016-10-28] MEDS: NS + KCL 20 MEQ INJ 1,000 ML IV SCH (21:27)
[2016-10-28] MEDS: HEPARIN-D5W 25,000 U/250 ML 250 ML IV SCH (21:32)
[2016-10-29] VITALS: BP 143/67; PULSE 91; RESP 18; TEMP 98.8; O2SAT 94
[2016-10-29] MEDS: ACETAMINOPHEN/HYDROcodone 325 MG/10 MG TAB PO PRN (00:43)
[2016-10-29 04:00] VITALS: BP 141/64; PULSE 79; RESP 18; TEMP 98.1; O2SAT 94
[2016-10-29 05:51] LABS: AUTOMATED NEUTROPHIL # 2.6 TH/MM3 (1.8-7.7); BASOPHIL % 0.7 % (0.0-2.0); EOSINOPHIL # 0.3 TH/MM3 (0-0.4); EOSINOPHIL % 6.2 % (0.0-4.0); HEMATOCRIT 31.3 % (35.0-46.0); HEMO FLAGS DIFF FINAL; LYMPH % 28.2 % (9.0-44.0); LYMPHOCYTE # 1.3 TH/MM3 (1.0-4.8); MEAN CELL VOLUME 88.5 FL (80.0-100.0); MEAN CORPUSCULAR HEMOGLOBIN 31.6 PG (27.0-34.0); MEAN CORPUSCULAR HGB CONC 35.7 % (32.0-36.0); MONO % 5.8 % (0.0-8.0); NEUT % 59.1 % (16.0-70.0); PLATELET COUNT 176 TH/MM3 (150-450); RED BLOOD COUNT 3.54 MIL/MM3 (4.00-5.30); RED CELL DISTRIBUTION WIDTH 12.4 % (11.6-17.2); WHITE BLOOD COUNT 4.4 TH/MM3 (4.0-11.0)
[2016-10-29 06:01] LABS: APTT (PATIENT) 51.2 SEC (24.3-30.1); INTERNATIONAL NORMALIZED RATIO 1.2 RATIO; PROTHROMBIN TIME - PATIENT 12.9 SEC (9.8-11.6)
[2016-10-29 06:15] LABS: BICARBONATE 24.7 MEQ/L (21.0-32.0); POTASSIUM 3.7 MEQ/L (3.5-5.1)
[2016-10-29] MEDS: INSULIN ASPART SUPPLEMENTAL SCALE SQ SCH ×4 (06:32→20:59)
[2016-10-29] MEDS: LEVOTHYROXINE SODIUM 75 MCG TAB PO SCH (06:32)
[2016-10-29 08:00] VITALS: BP 153/67; PULSE 84; PULSE 87; RESP 16; TEMP 98.1; O2SAT 94
[2016-10-29] MEDS: SODIUM CHLORIDE 0.9% FLUSH 10 ML FLUSH IV FLUSH SCH ×2 (09:00→20:55)
[2016-10-29] MEDS: METOPROLOL TARTRATE 25 MG TAB PO SCH ×2 (09:39→20:54)
[2016-10-29] MEDS: DOCUSATE SODIUM 50 MG/SENNA 8.6 MG TAB PO SCH ×2 (09:39→20:54)
[2016-10-29] MEDS: SERTRALINE HCL 50 MG TAB PO SCH (09:39)
[2016-10-29] MEDS: ASPIRIN EC 81 MG TABEC PO SCH (09:39)
[2016-10-29] MEDS: amLODIPine BESYLATE 5 MG TAB PO SCH (09:39)
[2016-10-29 12:00] VITALS: BP 152/67; PULSE 82; RESP 16; TEMP 98.2; O2SAT 96
--- NOTE | 2016-10-29 13:00 | PD.ONC.PN ---
Subjective Subjective Remarks Ms. Aguirre is feeling good today. Her foot pain has returned. She is relieved that upper GI series did not reveal a mass. Objective Data Date Time Temp Pulse Resp B/P Pulse Ox O2 Delivery O2 Flow Rate FiO2 10/29/16 04:00 98.1 79 18 141/64 94 10/29/16 00:00 98.8 91 18 143/67 94 10/28/16 20:00 98.9 89 18 158/72 94 10/28/16 19:45 85 10/28/16 19:45 Room Air 10/28/16 16:00 98.3 87 20 136/62 94 10/29/16 10/29/16 10/29/16 07:00 15:00 23:00 Intake Total 240 ml Output Total 0 ml Balance 240 ml Result Diagram: 10/29/16 0540 10/29/16 0540 Laboratory Results Laboratory Tests Test 10/29/16 05:40 White Blood Count 4.4 TH/MM3 Red Blood Count 3.54 MIL/MM3 Hemoglobin 11.2 GM/DL Hematocrit 31.3 % Mean Corpuscular Volume 88.5 FL Mean Corpuscular Hemoglobin 31.6 PG Mean Corpuscular Hemoglobin 35.7 % Concent Red Cell Distribution Width 12.4 % Platelet Count 176 TH/MM3 Mean Platelet Volume 7.8 FL Neutrophils (%) (Auto) 59.1 % Lymphocytes (%) (Auto) 28.2 % Monocytes (%) (Auto) 5.8 % Eosinophils (%) (Auto) 6.2 % Basophils (%) (Auto) 0.7 % Neutrophils # (Auto) 2.6 TH/MM3 Lymphocytes # (Auto) 1.3 TH/MM3 Monocytes # (Auto) 0.3 TH/MM3 Eosinophils # (Auto) 0.3 TH/MM3 Basophils # (Auto) 0.0 TH/MM3 CBC Comment DIFF FINAL Differential Comment Prothrombin Time 12.9 SEC Prothromb Time International 1.2 RATIO Ratio Activated Partial 51.2 SEC Thromboplast Time Sodium Level 145 MEQ/L Potassium Level 3.7 MEQ/L Chloride Level 113 MEQ/L Carbon Dioxide Level 24.7 MEQ/L Anion Gap 7 MEQ/L Blood Urea Nitrogen 14 MG/DL Creatinine 0.82 MG/DL Estimat Glomerular Filtration 69 ML/MIN Rate Random Glucose 133 MG/DL Calcium Level 8.1 MG/DL Administered Medications Medications (Trade) Dose Ordered Sig/Paola Route PRN Reason Start Time Stop Time Status Last Admin Dose Admin Sodium Chloride (NS Flush) 2 ml BID IV FLUSH 10/25/16 21:00 10/25/16 22:23 Acetaminophen/ Hydrocodone Bitart ([place] 5-325 Mg) 1 tab Q4H PRN PO PAIN SCALE 3 TO 5 10/25/16 19:00 10/26/16 12:39 Acetaminophen/ Hydrocodone Bitart ([place] 10-325 Mg) 1 tab Q4H PRN PO PAIN SCALE 6 TO 10 10/25/16 19:00 10/29/16 00:43 Senna/Docusate Sodium (Nurys-Colace) 1 tab BID PO 10/25/16 21:00 10/29/16 09:39 Amlodipine Besylate (Norvasc) 5 mg DAILY PO 10/26/16 09:00 10/29/16 09:39 Aspirin (Ecotrin Ec) 81 mg DAILY PO 10/26/16 09:00 10/29/16 09:39 Atorvastatin Calcium (Lipitor) 80 mg HS PO 10/25/16 21:00 10/28/16 21:27 Levothyroxine Sodium (Synthroid) 75 mcg DAILY@06 PO 10/26/16 06:00 10/29/16 06:32 Metoprolol Tartrate (Lopressor) 25 mg BID PO 10/25/16 21:00 10/29/16 09:39 Sertraline HCl (Zoloft) 50 mg DAILY PO 10/26/16 09:00 10/29/16 09:39 Heparin Sodium (Porcine) 2500 units 2,500 units UNSCH PRN IV APTT 25 TO 39 10/26/16 02:45 10/26/16 16:55 Heparin Sodium/ Dextrose 250 ml @ 0 mls/hr TITRATE IV 10/25/16 20:45 10/28/16 21:32 Potassium Chloride/Sodium Chloride (NS + KCl 20 Meq Inj) 1,000 ml @ 83 mls/hr Q12H3M IV 10/26/16 09:00 10/28/16 21:27 Warfarin Sodium (Coumadin) 5 mg DAILY@1600 PO 10/26/16 20:00 10/28/16 17:24 Objective Remarks GENERAL: Well-nourished, well-developed patient. SKIN: Warm and dry. HEAD: Normocephalic. EYES: No scleral icterus. CARDIOVASCULAR: Regular rate and rhythm without murmurs. RESPIRATORY: Breath sounds equal bilaterally. No accessory muscle use. EXTREMITIES: No edema. MUSCULOSKELETAL: Adequate muscle tone. NEUROLOGICAL: No obvious focal deficit. Awake, alert, and oriented x3. PSYCHIATRIC: Appropriate mood and affect; insight and judgment normal. Assessment/Plan Assessment 1. Pulmonary embolism: Provoked in the setting of inactivity due to vision changes and right leg pain. She will need a minimum of three months of anticoagulation. Warfarin was started on 10/26 with starting INR of 1.0. INR 1.2today. Ordered Lovenox at 1 mg/kg BID and discontinued heparin gtt. If INR low tomorrow will increase dose. Consulted case management for assistance with outpatient lovenox and INR checks. 2. Gastric mass: not visualized on upper GI series. Likely secondary to food bolus 3. CKD, moderate renal impairment 4. History of uterine cancer: in 2004 s/p surgery and radiation therapy. Dotty Torre MD Oct 29, 2016 13:00
[2016-10-29] MEDS: ENOXAPARIN SODIUM 80 MG/0.8 ML SYRINGE SQ SCH (15:20)
[2016-10-29] MEDS: WARFARIN SOD 5 MG TAB PO SCH (15:21)
[2016-10-29 16:00] VITALS: BP 138/65; PULSE 76; RESP 16; TEMP 98.8; O2SAT 97
--- NOTE | 2016-10-29 16:21 | HHI.PR ---
Subjective Remarks Follow-up pulmonary embolus. Patient denies chest pain or dyspnea at this time. Leg pain had improved, but came back overnight. It did respond well to pain medication. Objective Vitals Vital Signs Date Time Temp Pulse Resp B/P Pulse Ox O2 Delivery O2 Flow Rate FiO2 10/29/16 12:00 98.2 82 16 152/67 96 10/29/16 08:00 98.1 84 16 153/67 94 10/29/16 04:00 98.1 79 18 141/64 94 10/29/16 00:00 98.8 91 18 143/67 94 10/28/16 20:00 98.9 89 18 158/72 94 10/28/16 19:45 85 10/28/16 19:45 Room Air I/O 10/28/16 10/28/16 10/28/16 10/29/16 10/29/16 10/29/16 07:00 15:00 23:00 07:00 15:00 23:00 Intake Total 0 ml 1848 ml 1411 ml 240 ml Output Total 0 ml Balance 0 ml 1848 ml 1411 ml 240 ml Intake Oral 0 ml 120 ml 500 ml 240 ml IV Total 1728 ml 911 ml Output Urine Total 0 ml # Voids 3 4 3 # Bowel Movements 7 4 1 Result Diagram: 10/29/16 0540 10/29/16 0540 Imaging Last Impressions Upper GI Series w/ Air Contrast 10/28/16 0000 Signed Impressions: Service Date/Time: Friday, October 28, 2016 12:03 - CONCLUSION: 1. The stomach is within normal limits with no mass. The abnormality seen on the recent abdomen CT appears to be artifactual secondary to food. 2. Small reducible hiatal hernia with small amount of gastroesophageal reflux. Redd Casas MD Lower Extremity Ultrasound 10/26/16 0000 Signed Impressions: Service Date/Time: Wednesday, October 26, 2016 09:19 - CONCLUSION: Negative for deep venous thrombosis. Munir Grigsby MD FACR Chest X-Ray 10/25/16 1702 Signed Impressions: Service Date/Time: Tuesday, October 25, 2016 17:07 - CONCLUSION: No acute disease. Sarabjit Heaton MD Lung Scan- Nuclear Medicine 10/25/16 0000 Signed Impressions: Service Date/Time: Tuesday, October 25, 2016 19:58 - CONCLUSION: Exam is positive for pulmonary embolus. Multiple large mismatched perfusion defects. Findings were discussed with the patient's nurse. Rommel Ritter MD Objective Remarks General: Elderly female in no acute distress. Heart: Regular rate and rhythm. No murmur. Lungs: Clear to auscultation bilaterally. No wheezes, rales, or rhonchi. Breathing is nonlabored. Abdomen: Soft, nontender, nondistended. Extremities: No lower extremity edema. Psych: Alert and oriented. Procedures None Urinary Catheter: No Vascular Central Line Catheter: No A/P Problem List: (1) PE (pulmonary thromboembolism) ICD Code: I26.99 Status: Acute (2) Leukocytosis ICD Code: D72.829 Status: Resolved (3) Hypokalemia ICD Code: E87.6 Status: Acute (4) Renal insufficiency ICD Code: N28.9 Status: Acute (5) Mass of stomach ICD Code: K31.9 Status: Acute (6) DM (diabetes mellitus) ICD Code: E11.9 Status: Chronic Assessment and Plan 1. Pulmonary embolus: Continue Coumadin. Heparin drip discontinued. Lovenox started. Patient denies any recent travel. She has been fairly sedentary for the last couple months secondary to leg and back pain. She reports a history of uterine cancer that was diagnosed in 2004 and treated with hysterectomy and radiation therapy, although this is unlikely to be contributing to her current diagnosis. Appreciate hematology recommendations. Lower extremity ultrasound is negative for DVT. 2. Hypokalemia: Improved. 3. Diabetes mellitus: Oral hypoglycemic medications on hold secondary to renal insufficiency. Monitor Accu-Cheks and cover with sliding scale insulin. Diabetic diet. 4. Leukocytosis: Likely stress reaction. Resolved. 5. Acute on chronic kidney disease stage III: Improving. Continue IV fluids. Monitor BUN and creatinine. 6. Upper GI series completed to evaluate possible gastric mass. No mass was seen. The initial CT finding was likely artifactual secondary to retained food. Discharge Planning Possible discharge home tomorrow if cleared by hematology. Moustapha Humphrey MD Oct 29, 2016 16:21
[2016-10-29 20:00] VITALS: BP 162/72; PULSE 83; PULSE 98; RESP 20; TEMP 97.8; O2SAT 94
[2016-10-29] MEDS: ATORVASTATIN 80 MG TAB PO SCH (20:54)
[2016-10-29] MEDS: NAPROXEN 250 MG TAB PO SCH (20:54)
[2016-10-29] MEDS: NS + KCL 20 MEQ INJ 1,000 ML IV SCH (20:55)
[2016-10-30] VITALS (8 sets, daily range): BP systolic 140–171; BP diastolic 60–79; PULSE 66–95; RESP 16–20; TEMP 97.4–98.4; O2SAT 94–97
[2016-10-30] MEDS: ENOXAPARIN SODIUM 80 MG/0.8 ML SYRINGE SQ SCH ×2 (03:10→14:01)
[2016-10-30] MEDS: INSULIN ASPART SUPPLEMENTAL SCALE SQ SCH ×4 (06:25→21:00)
[2016-10-30] MEDS: NAPROXEN 250 MG TAB PO SCH ×2 (06:25→17:00)
[2016-10-30] MEDS: LEVOTHYROXINE SODIUM 75 MCG TAB PO SCH (06:25)
[2016-10-30] MEDS: SODIUM CHLORIDE 0.9% FLUSH 10 ML FLUSH IV FLUSH SCH ×2 (09:00→21:54)
[2016-10-30 09:08] LABS: AUTOMATED NEUTROPHIL # 1.6 TH/MM3 (1.8-7.7); BASOPHIL % 1.2 % (0.0-2.0); EOSINOPHIL # 0.3 TH/MM3 (0-0.4); EOSINOPHIL % 9.2 % (0.0-4.0); HEMATOCRIT 31.1 % (35.0-46.0); HEMO FLAGS DIFF FINAL; LYMPH % 30.5 % (9.0-44.0); MEAN CORPUSCULAR HEMOGLOBIN 31.1 PG (27.0-34.0); MEAN CORPUSCULAR HGB CONC 35.3 % (32.0-36.0); MONO % 6.3 % (0.0-8.0); NEUT % 52.8 % (16.0-70.0); PLATELET COUNT 211 TH/MM3 (150-450); RED BLOOD COUNT 3.54 MIL/MM3 (4.00-5.30); RED CELL DISTRIBUTION WIDTH 12.8 % (11.6-17.2); WHITE BLOOD COUNT 3.1 TH/MM3 (4.0-11.0)
--- NOTE | 2016-10-30 09:13 | HHI.PR ---
Subjective Remarks Follow-up pulmonary embolus. Patient denies chest pain or dyspnea. She does have some lower extremity swelling today. Objective Vitals Vital Signs Date Time Temp Pulse Resp B/P Pulse Ox O2 Delivery O2 Flow Rate FiO2 10/30/16 08:00 97.6 95 20 166/75 96 10/30/16 04:00 97.4 83 18 161/75 96 10/30/16 00:00 98.2 83 20 140/60 96 10/29/16 20:00 98 10/29/16 20:00 97.8 83 20 162/72 94 10/29/16 20:00 Room Air 10/29/16 16:00 98.8 76 16 138/65 97 10/29/16 12:00 98.2 82 16 152/67 96 I/O 10/29/16 10/29/16 10/29/16 10/30/16 10/30/16 10/30/16 06:59 14:59 22:59 06:59 14:59 22:59 Intake Total 240 ml 480 ml 1514 ml 975 ml Output Total 0 ml 200 ml 300 ml Balance 240 ml 280 ml 1514 ml 675 ml Intake Oral 240 ml 480 ml 950 ml 240 ml IV Total 564 ml 735 ml Output Urine Total 0 ml 200 ml 300 ml # Voids 5 # Bowel Movements 1 1 Result Diagram: 10/30/16 0700 10/29/16 0540 Imaging Last Impressions Upper GI Series w/ Air Contrast 10/28/16 0000 Signed Impressions: Service Date/Time: Friday, October 28, 2016 12:03 - CONCLUSION: 1. The stomach is within normal limits with no mass. The abnormality seen on the recent abdomen CT appears to be artifactual secondary to food. 2. Small reducible hiatal hernia with small amount of gastroesophageal reflux. Redd Casas MD Lower Extremity Ultrasound 10/26/16 0000 Signed Impressions: Service Date/Time: Wednesday, October 26, 2016 09:19 - CONCLUSION: Negative for deep venous thrombosis. Munir Grgisby MD FACR Chest X-Ray 10/25/16 1702 Signed Impressions: Service Date/Time: Tuesday, October 25, 2016 17:07 - CONCLUSION: No acute disease. Sarabjit Heaton MD Lung Scan- Nuclear Medicine 10/25/16 0000 Signed Impressions: Service Date/Time: Tuesday, October 25, 2016 19:58 - CONCLUSION: Exam is positive for pulmonary embolus. Multiple large mismatched perfusion defects. Findings were discussed with the patient's nurse. Rommel Ritter MD Objective Remarks General: Elderly female in no acute distress. Heart: Regular rate and rhythm. No murmur. Lungs: Clear to auscultation bilaterally. No wheezes, rales, or rhonchi. Breathing is nonlabored. Abdomen: Soft, nontender, nondistended. Extremities: 1+ bilateral lower extremity edema. Psych: Alert and oriented. Procedures None Urinary Catheter: No Vascular Central Line Catheter: No A/P Problem List: (1) PE (pulmonary thromboembolism) ICD Code: I26.99 Status: Acute (2) Leukocytosis ICD Code: D72.829 Status: Resolved (3) Hypokalemia ICD Code: E87.6 Status: Acute (4) Renal insufficiency ICD Code: N28.9 Status: Acute (5) Mass of stomach ICD Code: K31.9 Status: Acute (6) DM (diabetes mellitus) ICD Code: E11.9 Status: Chronic Assessment and Plan 1. Pulmonary embolus: Continue Coumadin. Heparin drip discontinued. Lovenox started. Patient denies any recent travel. She has been fairly sedentary for the last couple months secondary to leg and back pain. She reports a history of uterine cancer that was diagnosed in 2004 and treated with hysterectomy and radiation therapy, although this is unlikely to be contributing to her current diagnosis. Appreciate hematology recommendations. Lower extremity ultrasound is negative for DVT. INR is pending today. 2. Hypokalemia: Improved. 3. Diabetes mellitus: Oral hypoglycemic medications on hold secondary to renal insufficiency. Monitor Accu-Cheks and cover with sliding scale insulin. Diabetic diet. 4. Leukocytosis: Likely stress reaction. Resolved. 5. Acute on chronic kidney disease stage III: Improving. Continue IV fluids. Monitor BUN and creatinine. 6. Upper GI series completed to evaluate possible gastric mass. No mass was seen. The initial CT finding was likely artifactual secondary to retained food. 7. Lower extremity edema: Patient reports chronic intermittent edema of her ankles. Elevate feet. Ultrasound of the lower extremities negative for DVT. Discharge Planning Probable discharge home today if cleared by hematology. Moustapha Humphrey MD Oct 30, 2016 09:13
[2016-10-30] MEDS ORDERED: COUM5TAB PO (09:16)
[2016-10-30] MEDS ORDERED: ENOX80P SQ (09:16)
[2016-10-30 09:17] LABS: APTT (PATIENT) 39.1 SEC (24.3-30.1); INTERNATIONAL NORMALIZED RATIO 1.6 RATIO; PROTHROMBIN TIME - PATIENT 17.9 SEC (9.8-11.6)
--- NOTE | 2016-10-30 09:17 | HHI.DCPOC ---
Discharge Care Plan Diagnosis: (1) PE (pulmonary thromboembolism) (2) DM (diabetes mellitus) (3) Renal insufficiency (4) Hypokalemia Goals to Promote Your Health * To prevent worsening of your condition and complications * To maintain your health at the optimal level Directions to Meet Your Goals Take your medications as prescribed Follow your dietary instruction Follow activity as directed Keep your appointments as scheduled Take your immunizations and boosters as scheduled If your symptoms worsen call your PCP, if no PCP go to Urgent Care Center or Emergency Room Smoking is Dangerous to Your Health. Avoid second hand smoke Call the 24-hour hour crisis hotline for domestic abuse at Moustapha Humphrey MD Oct 30, 2016 09:17
[2016-10-30 09:48] LABS: BICARBONATE 23.6 MEQ/L (21.0-32.0); POTASSIUM 3.5 MEQ/L (3.5-5.1)
[2016-10-30] MEDS: SERTRALINE HCL 50 MG TAB PO SCH (10:18)
[2016-10-30] MEDS: METOPROLOL TARTRATE 25 MG TAB PO SCH ×2 (10:21→21:53)
[2016-10-30] MEDS: DOCUSATE SODIUM 50 MG/SENNA 8.6 MG TAB PO SCH ×2 (10:21→21:00)
[2016-10-30] MEDS: amLODIPine BESYLATE 5 MG TAB PO SCH (10:22)
[2016-10-30] MEDS: NS + KCL 20 MEQ INJ 1,000 ML IV SCH ×2 (10:23→18:15)
--- NOTE | 2016-10-30 13:19 | HHI.FF ---
Face to Face Verification Diagnosis: (1) Diplopia (2) PE (pulmonary thromboembolism) (3) DM (diabetes mellitus) (4) Leukocytosis (5) Renal insufficiency (6) Hypokalemia Home Health Nursing Order: Nursing assessment with vital signs Instructions: Lovenox INR every other day I have seen patient Melina Aguirre on 10/30/16. My clinical findings support the need for the requested home health care services because: Injectable med education/admin I certify that my clinical findings support that this patient is homebound because: Unsafe to leave home unassisted Moustapha Humphrey MD Oct 30, 2016 13:19
--- NOTE | 2016-10-30 15:18 | HHI.DS ---
cc: José Jackson MD Discharge Summary Admission Date Oct 25, 2016 at 18:40 Discharge Date: Oct 30, 2016 Admitting Diagnosis shortness of breath, possible PE (1) PE (pulmonary thromboembolism) ICD Code: I26.99 (2) Leukocytosis ICD Code: D72.829 (3) Hypokalemia ICD Code: E87.6 (4) Renal insufficiency ICD Code: N28.9 (5) Mass of stomach ICD Code: K31.9 (6) DM (diabetes mellitus) ICD Code: E11.9 Procedures None Brief History - From Admission This is a 71-year-old female with a PMH of HTN, Hyperlipidemia, Hypothyroidism and DM who presented to the ER with complaints of SOB with exertion x2-3 days. Denies fever, chills, cough or chest pain. On arrival, BP 117/64, HR 106, O2 sat 97% on RA, Afebrile. WBC 14.8. Creatinine 1.76, previously 1.40 on . K+ 3.0. Troponin negative. D-dimer 4.97. S/p Lovenox 80mg sq in ER while pending V/Q. CXR with no acute findings. V/Q positive for PE, multiple large mismatched perfusion defects noted. 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 CBC/BMP: 10/30/16 0700 10/30/16 0700 Significant Findings Laboratory Tests Test 10/28/16 10/29/16 10/30/16 06:37 05:40 07:00 Red Blood Count 3.56 MIL/MM3 3.54 MIL/MM3 3.54 MIL/MM3 (4.00-5.30) (4.00-5.30) (4.00-5.30) Hemoglobin 11.2 GM/DL 11.2 GM/DL 11.0 GM/DL (11.6-15.3) (11.6-15.3) (11.6-15.3) Hematocrit 31.1 % 31.3 % 31.1 % (35.0-46.0) (35.0-46.0) (35.0-46.0) Prothrombin Time 11.8 SEC 12.9 SEC 17.9 SEC (9.8-11.6) (9.8-11.6) (9.8-11.6) Activated Partial 52.6 SEC 51.2 SEC 39.1 SEC Thromboplast Time (24.3-30.1) (24.3-30.1) (24.3-30.1) Potassium Level 3.3 MEQ/L (3.5-5.1) Chloride Level 111 MEQ/L 113 MEQ/L 112 MEQ/L (98-107) (98-107) (98-107) Estimat Glomerular Filtration 68 ML/MIN (>89) 69 ML/MIN (>89) 73 ML/MIN (>89) Rate Random Glucose 141 MG/DL 133 MG/DL 122 MG/DL (74-106) (74-106) (74-106) Calcium Level 8.2 MG/DL 8.1 MG/DL (8.5-10.1) (8.5-10.1) Eosinophils (%) (Auto) 6.2 % (0.0-4.0) 9.2 % (0.0-4.0) White Blood Count 3.1 TH/MM3 (4.0-11.0) Neutrophils # (Auto) 1.6 TH/MM3 (1.8-7.7) Imaging Last Impressions Upper GI Series w/ Air Contrast 10/28/16 0000 Signed Impressions: Service Date/Time: Friday, October 28, 2016 12:03 - CONCLUSION: 1. The stomach is within normal limits with no mass. The abnormality seen on the recent abdomen CT appears to be artifactual secondary to food. 2. Small reducible hiatal hernia with small amount of gastroesophageal reflux. Redd Casas MD Lower Extremity Ultrasound 10/26/16 0000 Signed Impressions: Service Date/Time: Wednesday, October 26, 2016 09:19 - CONCLUSION: Negative for deep venous thrombosis. Munir Grigsby MD FACR Chest X-Ray 10/25/16 1702 Signed Impressions: Service Date/Time: Tuesday, October 25, 2016 17:07 - CONCLUSION: No acute disease. Sarabjit Heaton MD Lung Scan-VQ Nuclear Medicine 10/25/16 0000 Signed Impressions: Service Date/Time: Tuesday, October 25, 2016 19:58 - CONCLUSION: Exam is positive for pulmonary embolus. Multiple large mismatched perfusion defects. Findings were discussed with the patient's nurse. Rommel Ritter MD PE at Discharge General: Elderly female in no acute distress. Heart: Regular rate and rhythm. No murmur. Lungs: Clear to auscultation bilaterally. No wheezes, rales, or rhonchi. Breathing is nonlabored. Abdomen: Soft, nontender, nondistended. Extremities: 1+ bilateral lower extremity edema. Psych: Alert and oriented. Hospital Course The patient was admitted for management of pulmonary embolus. She was started on heparin drip and Coumadin. Hematology was consulted. Patient was transitioned from heparin drip to Lovenox. INR began to increase. She was felt to be stable for discharge home with home health care for monitoring of INRs and continued Lovenox bridging. Pt Condition on Discharge: Stable Discharge Disposition: Disch w/ Home Health Serv Discharge Time: > 30 minutes Discharge Instructions DIET: Follow Instructions for: Diabetic Diet Activities you can perform: Regular-No Restrictions Follow up Referrals: Oncology - 1 Week with Dotty Torre MD PCP Follow-up - 1 Week New Orders: PT/INR - 3-5 Days New Medications: Enoxaparin Inj (Lovenox Inj) 80 mg/0.8 ML Syr 80 MG SQ Q12H PE #10 Ref 0 INJECTION Warfarin (Coumadin) 5 Mg Tab 5 MG PO DAILY@1600 PE #30 Ref 0 TAB Continued Medications: Amlodipine (Amlodipine) 5 Mg Tab 5 MG PO DAILY Blood Pressure Management #30 Ref 0 TAB Atorvastatin (Atorvastatin) 80 Mg Tab 80 MG PO HS Cholesterol Management #30 Ref 0 TAB Clonazepam (Clonazepam) 0.5 Mg Tab 0.5 MG PO BID PRN PRN #60 Ref 0 TAB Levothyroxine (Levothyroxine) 75 Mcg Tab 75 MCG PO DAILY Thyroid #30 Ref 0 TAB Losartan (Losartan) 50 Mg Tab 50 MG PO DAILY Blood Pressure Management #30 Ref 0 TAB Metoprolol Tartrate (Metoprolol Tartrate) 25 Mg Tab 25 MG PO BID #60 Ref 0 TAB Nateglinide (Nateglinide) 120 Mg Tab 120 MG PO TIDAC Blood Sugar Management #90 Ref 0 TAB Sertraline (Sertraline) 50 Mg Tab 50 MG PO DAILY #30 Ref 0 TAB Sitagliptin (Januvia) 100 Mg Tab 100 MG PO DAILY Blood Sugar Management #30 Ref 0 TAB Tramadol (Tramadol) 50 Mg Tab 50 MG PO Q6H PRN PAIN #10 Ref 0 TAB Triamterene-Hydrochlorothiazide (Triamterene-Hydrochlorothiazide) 37.5-25 Mg Cap 1 CAP PO DAILY #30 Ref 0 CAP Discontinued Medications: Aspirin DR (Ecotrin Low Strength) 81 Mg Tabdr 81 MG PO DAILY #30 Ref 0 TAB Moustapha Humphrey MD Oct 30, 2016 15:18
--- NOTE | 2016-10-30 18:12 | PD.ONC.PN ---
Subjective Subjective Remarks Patient is feeling better today. She has intermittent pain in her right leg. Objective Data Date Time Temp Pulse Resp B/P Pulse Ox O2 Delivery O2 Flow Rate FiO2 10/30/16 13:36 66 10/30/16 12:00 98.2 74 18 164/74 94 10/30/16 12:00 Room Air 10/30/16 08:00 97.6 95 20 166/75 96 10/30/16 08:00 Room Air 10/30/16 04:00 97.4 83 18 161/75 96 10/30/16 00:00 98.2 83 20 140/60 96 10/29/16 20:00 98 10/29/16 20:00 97.8 83 20 162/72 94 10/29/16 20:00 Room Air 10/30/16 10/30/16 10/30/16 07:00 15:00 23:00 Intake Total 975 ml Output Total 300 ml Balance 675 ml Result Diagram: 10/30/16 0700 10/30/16 0700 Laboratory Results Laboratory Tests Test 10/30/16 07:00 White Blood Count 3.1 TH/MM3 Red Blood Count 3.54 MIL/MM3 Hemoglobin 11.0 GM/DL Hematocrit 31.1 % Mean Corpuscular Volume 88.0 FL Mean Corpuscular Hemoglobin 31.1 PG Mean Corpuscular Hemoglobin 35.3 % Concent Red Cell Distribution Width 12.8 % Platelet Count 211 TH/MM3 Mean Platelet Volume 7.9 FL Neutrophils (%) (Auto) 52.8 % Lymphocytes (%) (Auto) 30.5 % Monocytes (%) (Auto) 6.3 % Eosinophils (%) (Auto) 9.2 % Basophils (%) (Auto) 1.2 % Neutrophils # (Auto) 1.6 TH/MM3 Lymphocytes # (Auto) 1.0 TH/MM3 Monocytes # (Auto) 0.2 TH/MM3 Eosinophils # (Auto) 0.3 TH/MM3 Basophils # (Auto) 0.0 TH/MM3 CBC Comment DIFF FINAL Differential Comment Prothrombin Time 17.9 SEC Prothromb Time International 1.6 RATIO Ratio Activated Partial 39.1 SEC Thromboplast Time Sodium Level 144 MEQ/L Potassium Level 3.5 MEQ/L Chloride Level 112 MEQ/L Carbon Dioxide Level 23.6 MEQ/L Anion Gap 8 MEQ/L Blood Urea Nitrogen 10 MG/DL Creatinine 0.78 MG/DL Estimat Glomerular Filtration 73 ML/MIN Rate Random Glucose 122 MG/DL Calcium Level 8.5 MG/DL Administered Medications Medications (Trade) Dose Ordered Sig/Paola Route PRN Reason Start Time Stop Time Status Last Admin Dose Admin Sodium Chloride (NS Flush) 2 ml BID IV FLUSH 10/25/16 21:00 10/25/16 22:23 Acetaminophen/ Hydrocodone Bitart ([place] 5-325 Mg) 1 tab Q4H PRN PO PAIN SCALE 3 TO 5 10/25/16 19:00 10/26/16 12:39 Acetaminophen/ Hydrocodone Bitart ([place] 10-325 Mg) 1 tab Q4H PRN PO PAIN SCALE 6 TO 10 10/25/16 19:00 10/29/16 00:43 Senna/Docusate Sodium (Nurys-Colace) 1 tab BID PO 10/25/16 21:00 10/30/16 10:21 Amlodipine Besylate (Norvasc) 5 mg DAILY PO 10/26/16 09:00 10/30/16 10:22 Atorvastatin Calcium (Lipitor) 80 mg HS PO 10/25/16 21:00 10/29/16 20:54 Levothyroxine Sodium (Synthroid) 75 mcg DAILY@06 PO 10/26/16 06:00 10/30/16 06:25 Metoprolol Tartrate (Lopressor) 25 mg BID PO 10/25/16 21:00 10/30/16 10:21 Sertraline HCl 50 mg 50 mg DAILY PO 10/26/16 09:00 10/30/16 10:18 Potassium Chloride/Sodium Chloride (NS + KCl 20 Meq Inj) 1,000 ml @ 83 mls/hr Q12H3M IV 10/26/16 09:00 10/30/16 10:23 Warfarin Sodium (Coumadin) 5 mg DAILY@1600 PO 10/26/16 20:00 10/29/16 15:21 Enoxaparin Sodium (Lovenox Inj) 80 mg Q12H SQ 10/29/16 15:00 10/30/16 14:01 Naproxen (Naprosyn) 250 mg Q12H PO 10/29/16 17:00 10/31/16 16:59 10/30/16 06:25 Objective Remarks GENERAL: Well-nourished, well-developed patient. SKIN: Warm and dry. HEAD: Normocephalic. EYES: no scleral icterus CARDIOVASCULAR: Regular rate and rhythm without murmurs. RESPIRATORY: Breath sounds equal bilaterally. No accessory muscle use. GASTROINTESTINAL: Abdomen soft, non-tender, nondistended. EXTREMITIES: No cyanosis, or edema. MUSCULOSKELETAL: Adequate muscle tone. NEUROLOGICAL: No obvious focal deficit. Awake, alert, and oriented x3. PSYCHIATRIC: Appropriate mood and affect; insight and judgment normal. Assessment/Plan Assessment 1. Pulmonary embolism: Provoked in the setting of inactivity due to vision changes and right leg pain. She will need a minimum of three months of anticoagulation. Warfarin 5 mg PO Qdaily was started on 10/26 with starting INR of 1.0. INR 1.6 today. On Lovenox bridge. Ok to discharge from hematology standpoint. -New patient scheduling will call patient to come to hematology clinic in [place] on 10/30. -She was given script for lab to have INR checked on Wednesday. -She will monitor closely for signs of bleeding. 2. Gastric mass: not visualized on upper GI series. Secondary to food bolus 3. CKD, moderate renal impairment 4. History of uterine cancer: in 2004 s/p surgery and radiation therapy. Dotty Torre MD Oct 30, 2016 18:12
[2016-10-30] MEDS: WARFARIN SOD 5 MG TAB PO SCH (18:17)
--- NOTE | 2016-10-30 21:26 | RADRPT ---
EXAM DATE/TIME: 10/30/2016 20:58 [facility] COMPARISON: No previous studies available for comparison. INDICATIONS : Patient complains of pain of pain in right ankle. No known injury. MEDICAL HISTORY : None. SURGICAL HISTORY : None. ENCOUNTER: Initial ACUITY: 3 days PAIN SCORE: 6/10 LOCATION: Right Ankle FINDINGS: There is lateral predominant soft tissue swelling. No radiopaque foreign body. No fracture or subluxa tion. There is a moderate-sized enthesophyte of the Achilles insertion. The tendon itself appears at least mildly thickened on the lateral. CONCLUSION: 1. Nonspecific soft tissue swelling. 2. No fracture. 3. Enthesophyte and suspected tendinosis of the Achilles. Joe Cadet MD on October 30, 2016 at 21:23 Board Certified Radiologist. This report was verified electronically.
[2016-10-30] MEDS: ATORVASTATIN 80 MG TAB PO SCH (21:53)
[2016-10-31 00:30] VITALS: BP 164/79; PULSE 89; RESP 16; TEMP 98.1; O2SAT 96
[2016-10-31] MEDS: ENOXAPARIN SODIUM 80 MG/0.8 ML SYRINGE SQ SCH ×2 (02:06→16:19)
[2016-10-31] MEDS: ACETAMINOPHEN/HYDROcodone 325 MG/10 MG TAB PO PRN (02:08)
[2016-10-31 04:42] VITALS: BP 167/79; PULSE 84; RESP 16; TEMP 97.4; O2SAT 96
[2016-10-31] MEDS: LEVOTHYROXINE SODIUM 75 MCG TAB PO SCH (05:59)
[2016-10-31] MEDS: NAPROXEN 250 MG TAB PO SCH (05:59)
[2016-10-31] MEDS: INSULIN ASPART SUPPLEMENTAL SCALE SQ SCH ×2 (05:59→11:00)
[2016-10-31] MEDS: NS + KCL 20 MEQ INJ 1,000 ML IV SCH (06:02)
[2016-10-31 08:00] VITALS: BP 171/88; PULSE 85; RESP 20; TEMP 97.9; O2SAT 95
[2016-10-31] MEDS: amLODIPine BESYLATE 5 MG TAB PO SCH (09:30)
[2016-10-31] MEDS: SERTRALINE HCL 50 MG TAB PO SCH (09:30)
[2016-10-31] MEDS: DOCUSATE SODIUM 50 MG/SENNA 8.6 MG TAB PO SCH (09:30)
[2016-10-31] MEDS: METOPROLOL TARTRATE 25 MG TAB PO SCH (09:30)
[2016-10-31] MEDS: SODIUM CHLORIDE 0.9% FLUSH 10 ML FLUSH IV FLUSH SCH (09:35)
--- NOTE | 2016-10-31 10:33 | PD.ONC.PN ---
Subjective Subjective Remarks Afebrile overnight. Patient was to be discharged yesterday, but was having pain in her right ankle. Does not remember injuring the ankle. Tolerating Lovenox and coumadin shots. Objective Data Date Time Temp Pulse Resp B/P Pulse Ox O2 Delivery O2 Flow Rate FiO2 10/31/16 08:00 97.9 85 20 171/88 95 10/31/16 04:42 97.4 84 16 167/79 96 10/31/16 00:30 98.1 89 16 164/79 96 10/30/16 21:24 97.8 81 16 171/79 94 10/30/16 20:00 Room Air 10/30/16 20:00 81 10/30/16 16:00 98.4 74 20 153/67 97 10/30/16 13:36 66 10/30/16 12:00 98.2 74 18 164/74 94 10/30/16 12:00 Room Air 10/31/16 10/31/16 10/31/16 06:59 14:59 22:59 Intake Total 923 ml Output Total 350 ml Balance 573 ml Result Diagram: 10/30/16 0700 10/30/16 0700 Administered Medications Medications (Trade) Dose Ordered Sig/Paola Route PRN Reason Start Time Stop Time Status Last Admin Dose Admin Sodium Chloride (NS Flush) 2 ml BID IV FLUSH 10/25/16 21:00 10/31/16 09:35 Acetaminophen/ Hydrocodone Bitart ([place] 5-325 Mg) 1 tab Q4H PRN PO PAIN SCALE 3 TO 5 10/25/16 19:00 10/26/16 12:39 Acetaminophen/ Hydrocodone Bitart ([place] 10-325 Mg) 1 tab Q4H PRN PO PAIN SCALE 6 TO 10 10/25/16 19:00 10/31/16 02:08 Senna/Docusate Sodium (Nurys-Colace) 1 tab BID PO 10/25/16 21:00 10/31/16 09:30 Amlodipine Besylate (Norvasc) 5 mg DAILY PO 10/26/16 09:00 10/31/16 09:30 Atorvastatin Calcium (Lipitor) 80 mg HS PO 10/25/16 21:00 10/30/16 21:53 Levothyroxine Sodium (Synthroid) 75 mcg DAILY@06 PO 10/26/16 06:00 10/31/16 05:59 Metoprolol Tartrate (Lopressor) 25 mg BID PO 10/25/16 21:00 10/31/16 09:30 Sertraline HCl 50 mg 50 mg DAILY PO 10/26/16 09:00 10/31/16 09:30 Potassium Chloride/Sodium Chloride (NS + KCl 20 Meq Inj) 1,000 ml @ 83 mls/hr Q12H3M IV 10/26/16 09:00 10/31/16 06:02 Warfarin Sodium (Coumadin) 5 mg DAILY@1600 PO 10/26/16 20:00 10/30/16 18:17 Enoxaparin Sodium (Lovenox Inj) 80 mg Q12H SQ 10/29/16 15:00 10/31/16 02:06 Naproxen (Naprosyn) 250 mg Q12H PO 10/29/16 17:00 10/31/16 16:59 10/31/16 05:59 Objective Remarks GENERAL: Elderly female upright in bed in [facility]. SKIN: Warm and dry. HEAD: Normocephalic. EYES: No injection or drainage. NECK: Supple, trachea midline. CARDIOVASCULAR: Regular rate and rhythm RESPIRATORY: Breath sounds equal bilaterally. No accessory muscle use. GASTROINTESTINAL: Abdomen soft, non-tender, nondistended. EXTREMITIES: No cyanosis. mild edema bilateral lower extremities. NEUROLOGICAL: awake and alert, normal speech. Assessment/Plan Assessment 1. Pulmonary embolism: Provoked in the setting of inactivity due to vision changes and right leg pain. She will need a minimum of three months of anticoagulation. continue Lovenox-->Coumadin. INR pending today 2. Gastric mass: not visualized on upper GI series. Secondary to food bolus 3. CKD, moderate renal impairment 4. History of uterine cancer: in 2004 s/p surgery and radiation therapy. Discharge -New patient scheduling will call patient to come to hematology clinic in [place] on 10/30. -She was given script for lab to have INR checked on Wednesday. clear for discharge from hematology perspective. Attending Statement The exam, history, and the medical decision-making described in the above note were completed with the assistance of the mid-level provider. I reviewed and agree with the findings presented. I attest that I had a [id number] encounter with the patient on the same day, and personally performed and documented my assessment and findings in the medical record Mahnaz Shah Oct 31, 2016 10:33 Lito Pearl MD Nov 06, 2016 10:06
[2016-10-31 12:00] VITALS: BP 185/81; PULSE 88; RESP 18; TEMP 97.9; O2SAT 97
[2016-10-31 12:22] LABS: HEMATOCRIT 32.6 % (35.0-46.0); MEAN CELL VOLUME 88.7 FL (80.0-100.0); MEAN CORPUSCULAR HEMOGLOBIN 31.3 PG (27.0-34.0); MEAN CORPUSCULAR HGB CONC 35.2 % (32.0-36.0); PLATELET COUNT 259 TH/MM3 (150-450); RED BLOOD COUNT 3.67 MIL/MM3 (4.00-5.30); RED CELL DISTRIBUTION WIDTH 12.8 % (11.6-17.2); REVIEW FLAG FINAL
--- NOTE | 2016-10-31 12:23 | HHI.DS ---
Discharge Summary Admission Date Oct 25, 2016 at 18:40 Discharge Date: Oct 31, 2016 Admitting Diagnosis shortness of breath, possible PE (1) PE (pulmonary thromboembolism) ICD Code: I26.99 Diagnosis: Principal (2) Leukocytosis ICD Code: D72.829 Diagnosis: Principal (3) Hypokalemia ICD Code: E87.6 Diagnosis: Principal (4) Renal insufficiency ICD Code: N28.9 Diagnosis: Principal (5) Mass of stomach ICD Code: K31.9 Diagnosis: Secondary (6) DM (diabetes mellitus) ICD Code: E11.9 Diagnosis: Secondary Procedures None Brief History - From Admission This is a 71-year-old female with a PMH of HTN, Hyperlipidemia, Hypothyroidism and DM who presented to the ER with complaints of SOB with exertion x2-3 days. Denies fever, chills, cough or chest pain. On arrival, BP 117/64, HR 106, O2 sat 97% on RA, Afebrile. WBC 14.8. Creatinine 1.76, previously 1.40 on . K+ 3.0. Troponin negative. D-dimer 4.97. S/p Lovenox 80mg sq in ER while pending V/Q. CXR with no acute findings. V/Q positive for PE, multiple large mismatched perfusion defects noted. 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 CBC/BMP: 10/30/16 0700 10/30/16 0700 Significant Findings Laboratory Tests Test 10/29/16 10/30/16 05:40 07:00 Red Blood Count 3.54 MIL/MM3 3.54 MIL/MM3 (4.00-5.30) (4.00-5.30) Hemoglobin 11.2 GM/DL 11.0 GM/DL (11.6-15.3) (11.6-15.3) Hematocrit 31.3 % 31.1 % (35.0-46.0) (35.0-46.0) Eosinophils (%) (Auto) 6.2 % (0.0-4.0) 9.2 % (0.0-4.0) Prothrombin Time 12.9 SEC 17.9 SEC (9.8-11.6) (9.8-11.6) Activated Partial 51.2 SEC 39.1 SEC Thromboplast Time (24.3-30.1) (24.3-30.1) Chloride Level 113 MEQ/L 112 MEQ/L (98-107) (98-107) Estimat Glomerular Filtration 69 ML/MIN (>89) 73 ML/MIN (>89) Rate Random Glucose 133 MG/DL 122 MG/DL (74-106) (74-106) Calcium Level 8.1 MG/DL (8.5-10.1) White Blood Count 3.1 TH/MM3 (4.0-11.0) Neutrophils # (Auto) 1.6 TH/MM3 (1.8-7.7) PE at Discharge General: Elderly female in no acute distress. Heart: Regular rate and rhythm. No murmur. Lungs: Clear to auscultation bilaterally. No wheezes, rales, or rhonchi. Breathing is nonlabored. Abdomen: Soft, nontender, nondistended. Extremities: 1+ bilateral lower extremity edema. Psych: Alert and oriented. Hospital Course 1. Pulmonary embolus: Continue Coumadin. Heparin drip discontinued. Lovenox started. Patient denies any recent travel. She has been fairly sedentary for the last couple months secondary to leg and back pain. She reports a history of uterine cancer that was diagnosed in 2004 and treated with hysterectomy and radiation therapy, although this is unlikely to be contributing to her current diagnosis. Appreciate hematology recommendations. Lower extremity ultrasound is negative for DVT. INR is pending today, 1.6 yesterday. Patient will follow up with hematology on Wednesday and has repeat INR Wednesday. 2. Hypokalemia: Improved. 3. Diabetes mellitus: Resume home medications 4. Leukocytosis: Likely stress reaction. Resolved. 5. Acute on chronic kidney disease stage III: Resolved with IVFs 6. Upper GI series completed to evaluate possible gastric mass. No mass was seen. The initial CT finding was likely artifactual secondary to retained food. 7. Lower extremity edema: Patient reports chronic intermittent edema of her ankles. Elevate feet. Ultrasound of the lower extremities negative for DVT. Pt Condition on Discharge: Stable Discharge Disposition: Disch w/ Home Health Serv Discharge Time: <= 30 minutes Discharge Instructions DIET: Follow Instructions for: Diabetic Diet Activities you can perform: Regular-No Restrictions Follow up Referrals: Oncology - 1 Week with Dotty Torre MD PCP Follow-up - 1 Week New Orders: PT/INR - 3-5 Days New Medications: Enoxaparin Inj (Lovenox Inj) 80 mg/0.8 ML Syr 80 MG SQ Q12H PE #10 Ref 0 INJECTION Warfarin (Coumadin) 5 Mg Tab 5 MG PO DAILY@1600 PE #30 Ref 0 TAB Continued Medications: Amlodipine (Amlodipine) 5 Mg Tab 5 MG PO DAILY Blood Pressure Management #30 Ref 0 TAB Atorvastatin (Atorvastatin) 80 Mg Tab 80 MG PO HS Cholesterol Management #30 Ref 0 TAB Clonazepam (Clonazepam) 0.5 Mg Tab 0.5 MG PO BID PRN PRN #60 Ref 0 TAB Levothyroxine (Levothyroxine) 75 Mcg Tab 75 MCG PO DAILY Thyroid #30 Ref 0 TAB Losartan (Losartan) 50 Mg Tab 50 MG PO DAILY Blood Pressure Management #30 Ref 0 TAB Metoprolol Tartrate (Metoprolol Tartrate) 25 Mg Tab 25 MG PO BID #60 Ref 0 TAB Nateglinide (Nateglinide) 120 Mg Tab 120 MG PO TIDAC Blood Sugar Management #90 Ref 0 TAB Sertraline (Sertraline) 50 Mg Tab 50 MG PO DAILY #30 Ref 0 TAB Sitagliptin (Januvia) 100 Mg Tab 100 MG PO DAILY Blood Sugar Management #30 Ref 0 TAB Tramadol (Tramadol) 50 Mg Tab 50 MG PO Q6H PRN PAIN #10 Ref 0 TAB Triamterene-Hydrochlorothiazide (Triamterene-Hydrochlorothiazide) 37.5-25 Mg Cap 1 CAP PO DAILY #30 Ref 0 CAP Discontinued Medications: Aspirin DR (Ecotrin Low Strength) 81 Mg Tabdr 81 MG PO DAILY #30 Ref 0 TAB Adriana Mistry MD R3 Oct 31, 2016 12:23
[2016-10-31 16:00] VITALS: BP 170/84; PULSE 77; RESP 20; TEMP 98.1; O2SAT 96
[2016-10-31 16:07] LABS: INTERNATIONAL NORMALIZED RATIO 1.8 RATIO; PROTHROMBIN TIME - PATIENT 20.2 SEC (9.8-11.6)
[2016-10-31] MEDS: WARFARIN SOD 5 MG TAB PO SCH (16:16)
[2016-12-24] MEDS ORDERED: WARF-23 PO (11:08)
== END 2016-10-31 16:50 | disposition home health service (06) | DRG 176 ==
LOC: NEPE 16:23 → NEDA 18:40 → NEPHCDU 19:54 → HCIN 22:04 → N04A 10-27 13:49
PROVIDERS: ADMIT Hospitalist; ATTEND Family Medicine
DX: I26.99 Other pulmonary embolism without acute cor pulmonale (principal); E11.22 Type 2 diabetes mellitus with diabetic chronic kidney disease; N18.3 Chronic kidney disease, stage 3 (moderate); E87.6 Hypokalemia; D72.829 Elevated white blood cell count, unspecified; N28.9 Disorder of kidney and ureter, unspecified; I12.9 Hypertensive chronic kidney disease with stage 1 through stage 4 chronic kidney disease, or unspecified chronic kidney disease; E03.9 Hypothyroidism, unspecified; E78.5 Hyperlipidemia, unspecified; R09.02 Hypoxemia; R60.0 Localized edema; M25.571 Pain in right ankle and joints of right foot; Z85.42 Personal history of malignant neoplasm of other parts of uterus; Z92.3 Personal history of irradiation; Z87.891 Personal history of nicotine dependence; Z23 Encounter for immunization
CPT/HCPCS: 71010; 73610; 74247; 76937; 78582; 80048; 80053; 81001; 82948; 83735; 83880; 84484; 85007; 85025; 85027; 85379; 85610; 85730; 90471; 90732; 93005; 93970; 96360; A9540; A9567; G0009; J1644; J1650; J1815; J3480; J7030